=== PATIENT | male | born 1995 | race Caucasian/White ===

== ENCOUNTER 2020-06-12 11:43 | Inpatient (IN) | payer MEDICAID ==
[~2020-06-12] VITALS: Ht 162.6 cm; Wt 50.0 kg
[2020-06-12] MEDS ORDERED: HALOPERIDOL LACTATE 5 MG/ML VIAL IM ONE (14:45)
[2020-06-12] MEDS ORDERED: DiphenhydrAMINE HCL 50 MG/ML VIAL IM ONE (14:45)
[2020-06-12] MEDS ORDERED: LORazepam 2 MG/ML VIAL IM ONE (14:45)
[2020-06-12 16:30] LABS: COVID AG,FIA SOURCE NASOPHARYNGEAL
[2020-06-12 16:55] LABS: BASOPHILS % (AUTO) 0.4 % (0.0-2.0); EOSINOPHILS % (AUTO) 0 % (1.0-6.0); HEMATOCRIT 48.6 % (41-53); HEMOGLOBIN 16.7 g/dL (13.5-17.5); LYMPHOCYTES # (AUTO) 1.3 K/uL (1.0-4.8); LYMPHOCYTES % (AUTO) 12.3 % (22.0-44.0); MEAN CORPUSCULAR HEMOGLOBIN 30.9 pg (26.0-34.0); MEAN CORPUSCULAR HGB CONC 34.3 G/dL (31.0-37.0); MEAN CORPUSCULAR VOLUME 90 fL (80-100); MONOCYTES # (AUTO) 0.8 K/uL (0.1-1.0); MONOCYTES % (AUTO) 7.7 % (2.0-9.0); NEUTROPHILS # (AUTO) 8.1 K/uL (1.8-7.7); NEUTROPHILS % (AUTO) 79.6 % (40.0-70.0); PLATELET COUNT (AUTO) 180 K/uL (150-450); RED CELL DISTRIBUTION WIDTH 13.3 % (11.5-14.5)
[2020-06-12 17:06] LABS: ANION GAP 17 mmol/L (8-16); CALCIUM, TOTAL 9.5 mg/dL (8.8-10.5); CARBON DIOXIDE 23 mmol/L (22-29); CHLORIDE 100 mmol/L (98-107); CREATININE 0.89 mg/dL (0.60-1.30); GLOMERULAR FILTR. RATE CALC > 60 mL/min (>60); GLUCOSE,RANDOM 88 mg/dL (70-110); POTASSIUM 3.7 mmol/L (3.5-5.1); SODIUM SERUM 140 mmol/L (136-145); UREA NITROGEN, BLOOD 15 mg/dL (7-18)
[2020-06-12 17:11] LABS: ALANINE AMINOTRANSFERASE 18 U/L (12-78); ALBUMIN 5.2 g/dL (3.4-5.0); ALKALINE PHOSPHATASE 68 U/L (46-116); ASPARTATE AMINOTRANSFERASE 22 U/L (15-37); BILIRUBIN,TOTAL 1.7 mg/dL (0.1-1.0); TOTAL PROTEIN, SERUM 8.3 g/dL (6.4-8.2)
[2020-06-12 17:21] LABS: FREE T4 (FREE THYROXINE) 1.3 ng/dL (0.76-1.46); THYROID STIMULATING HORMONE 2.27 uIU/mL (0.36-3.74)
[2020-06-12 21:00] VITALS: BP 114/70
[2020-06-12] MEDS ORDERED: ZOLPIDEM TARTRATE 10 MG TABLET PO PRN (21:15)
[2020-06-12] MEDS ORDERED: INFLUENZA VIRUS VACCINE QVS 2020-21 (6MO+)/PF 60 MCG/0.5 ML SYRINGE IM ONE (21:30)
[2020-06-13] MEDS ORDERED: IBUPROFEN 400 MG TABLET PO PRN (07:00)
[2020-06-13] MEDS ORDERED: CloNIDine HCL 0.1 MG TABLET PO PRN (07:00)
[2020-06-13] MEDS ORDERED: PETROLATUM,WHITE 28 GM JELLY TP PRN (07:00)
[2020-06-13] MEDS ORDERED: DOCUSATE SODIUM 100 MG CAPSULE PO PRN (07:00)
[2020-06-13] MEDS ORDERED: MAG HYDROX/AL HYDROX/SIMETH ES 30 ML SUSPENSION UDCUP PO PRN (07:00)
[2020-06-13] MEDS ORDERED: MAGNESIUM HYDROXIDE SUSPENSION 30 ML UDCUP PO PRN (07:00)
[2020-06-13] MEDS ORDERED: ALBUTEROL SULFATE HFA 90 MCG/PUFF 8 GM INHALER IH PRN (07:00)
[2020-06-13] MEDS ORDERED: ACETAMINOPHEN 325 MG TABLET PO PRN (07:00)
[2020-06-13] MEDS ORDERED: GuaiFENesin/D-METHORPHAN [SUGAR-FREE] 200-20MG/10 ML SYRUP UDCUP PO PRN (07:00)
[2020-06-13] MEDS ORDERED: NICOTINE 14 MG/24 HOUR PATCH TD PRN (07:00)
[2020-06-13] MEDS ORDERED: ONDANSETRON HCL 4 MG TABLET PO PRN (07:00)
[2020-06-13] MEDS ORDERED: LOPERAMIDE HCL 2 MG CAPSULE PO PRN (07:00)
[2020-06-13 08:31] LABS: CHOL/HDL RATIO 3.2 (4.2-7.3)
[2020-06-13] MEDS: LORazepam 2 MG TABLET PO PRN ×2 (08:33→20:20)
[2020-06-13] MEDS: HALOPERIDOL 5 MG TABLET PO PRN ×2 (08:33→20:19)
[2020-06-13 08:46] VITALS: BP 124/74
[2020-06-13] MEDS: ARIPiprazole 5 MG TABLET PO SCH (15:01)
[2020-06-13 17:25] VITALS: BP 101/69
[2020-06-14 03:48] VITALS: BP 108/73
[2020-06-14] MEDS: HALOPERIDOL 5 MG TABLET PO PRN (08:44)
[2020-06-14] MEDS: LORazepam 2 MG TABLET PO PRN (08:44)
[2020-06-14] MEDS: ARIPiprazole 5 MG TABLET PO SCH (08:44)
[2020-06-14 09:25] VITALS: BP 117/80
[2020-06-14 17:19] VITALS: BP 118/80
[2020-06-15 05:19] VITALS: BP 114/79
[2020-06-15 08:30] VITALS: BP 112/78
[2020-06-15] MEDS: ARIPiprazole 5 MG TABLET PO SCH (09:45)
[2020-06-15 16:47] VITALS: BP 105/70
[2020-06-16 02:55] VITALS: BP 125/80
[2020-06-16] MEDS ORDERED: ARIP5TAB8 PO (08:13)
[2020-06-16] MEDS: ARIPiprazole 5 MG TABLET PO SCH (08:20)
[2020-06-16 08:28] VITALS: BP 116/78
== END 2020-06-16 14:47 | disposition home or self-care (01) | DRG 750 ==
LOC: EMS 11:43 → B3A 19:00
DX: F20.0 Paranoid schizophrenia (principal); E80.6 Other disorders of bilirubin metabolism; F32.9 Major depressive disorder, single episode, unspecified; F29 Unspecified psychosis not due to a substance or known physiological condition; R00.0 Tachycardia, unspecified; Z20.822 Contact with and (suspected) exposure to COVID-19; R10.13 Epigastric pain; Z79.899 Other long term (current) drug therapy; Z28.21 Immunization not carried out because of patient refusal
CPT/HCPCS: 84439; 84443; 87426; 99285; G0480; J1200; J1630; J2060

== ENCOUNTER 2020-06-19 15:14 | Inpatient (IN) | payer MEDICAID ==
[~2020-06-19] VITALS: Ht 170.2 cm; Wt 45.8 kg
[~2020-06-19 15:14] MED LIST: ARIP5TAB8 PO
[2020-06-19] MEDS ORDERED: HALOPERIDOL 5 MG TABLET PO PRN (15:30)
[2020-06-19] MEDS ORDERED: ZOLPIDEM TARTRATE 10 MG TABLET PO PRN (15:30)
[2020-06-19] MEDS ORDERED: LORazepam 1 MG TABLET PO PRN (15:30)
[2020-06-19 16:52] VITALS: BP 127/78
[2020-06-19 19:22] LABS: COVID AG,FIA SOURCE NASAL SWAB
[2020-06-19 20:10] VITALS: BP 131/94
[2020-06-19] MEDS ORDERED: INFLUENZA VIRUS VACCINE QVS 2020-21 (6MO+)/PF 60 MCG/0.5 ML SYRINGE IM ONE (20:30)
[2020-06-20] MEDS ORDERED: NICOTINE 14 MG/24 HOUR PATCH TD PRN (07:30)
[2020-06-20] MEDS ORDERED: CloNIDine HCL 0.1 MG TABLET PO PRN (07:30)
[2020-06-20] MEDS ORDERED: LOPERAMIDE HCL 2 MG CAPSULE PO PRN (07:30)
[2020-06-20] MEDS ORDERED: DOCUSATE SODIUM 100 MG CAPSULE PO PRN (07:30)
[2020-06-20] MEDS ORDERED: MAGNESIUM HYDROXIDE SUSPENSION 30 ML UDCUP PO PRN (07:30)
[2020-06-20] MEDS ORDERED: GuaiFENesin/D-METHORPHAN [SUGAR-FREE] 200-20MG/10 ML SYRUP UDCUP PO PRN (07:30)
[2020-06-20] MEDS ORDERED: ONDANSETRON HCL 4 MG TABLET PO PRN (07:30)
[2020-06-20] MEDS ORDERED: MAG HYDROX/AL HYDROX/SIMETH ES 30 ML SUSPENSION UDCUP PO PRN (07:30)
[2020-06-20] MEDS ORDERED: IBUPROFEN 400 MG TABLET PO PRN (07:30)
[2020-06-20] MEDS ORDERED: ALBUTEROL SULFATE HFA 90 MCG/PUFF 8 GM INHALER IH PRN (07:30)
[2020-06-20] MEDS ORDERED: ACETAMINOPHEN 325 MG TABLET PO PRN (07:30)
[2020-06-20] MEDS ORDERED: PETROLATUM,WHITE 28 GM JELLY TP PRN (07:30)
[2020-06-20 07:36] LABS: EOSINOPHILS % (AUTO) 0.4 % (1.0-6.0); LYMPHOCYTES % (AUTO) 30.1 % (22.0-44.0); MEAN CORPUSCULAR HEMOGLOBIN 31.1 pg (26.0-34.0); MEAN CORPUSCULAR HGB CONC 34.1 G/dL (31.0-37.0); MEAN CORPUSCULAR VOLUME 91 fL (80-100); MONOCYTES # (AUTO) 0.2 K/uL (0.1-1.0); MONOCYTES % (AUTO) 7.9 % (2.0-9.0); NEUTROPHILS # (AUTO) 1.9 K/uL (1.8-7.7); NEUTROPHILS % (AUTO) 60.6 % (40.0-70.0); PLATELET COUNT (AUTO) 182 K/uL (150-450); RED BLOOD CELL COUNT(AUTO) 5.16 MIL/uL (4.50-5.90); RED CELL DISTRIBUTION WIDTH 13.4 % (11.5-14.5)
[2020-06-20 07:51] LABS: HEMOGLOBIN A1C 4.9 % (3.8-5.6)
[2020-06-20 08:08] LABS: ALANINE AMINOTRANSFERASE 23 U/L (12-78); ALBUMIN 4.4 g/dL (3.4-5.0); ALKALINE PHOSPHATASE 59 U/L (46-116); ANION GAP 9 mmol/L (8-16); ASPARTATE AMINOTRANSFERASE 14 U/L (15-37); BILIRUBIN,TOTAL 0.9 mg/dL (0.1-1.0); CALCIUM, TOTAL 9.2 mg/dL (8.8-10.5); CARBON DIOXIDE 30 mmol/L (22-29); CHLORIDE 104 mmol/L (98-107); CHOL/HDL RATIO 2.9 (4.2-7.3); CHOLESTEROL 130 mg/dL (131-200); CREATININE 0.75 mg/dL (0.60-1.30); GLOMERULAR FILTR. RATE CALC > 60 mL/min (>60); GLUCOSE,RANDOM 91 mg/dL (70-110); HDL CHOLESTEROL 45 mg/dL (40-60); LDL CHOL (CALC.) 75 mg/dL (0-130); POTASSIUM 3.6 mmol/L (3.5-5.1); SODIUM SERUM 143 mmol/L (136-145); TOTAL PROTEIN, SERUM 7.2 g/dL (6.4-8.2); TRIGLYCERIDES 52 mg/dL (15-150); UREA NITROGEN, BLOOD 7 mg/dL (7-18)
[2020-06-20 08:17] VITALS: BP 116/94
[2020-06-20 08:23] LABS: FREE T4 (FREE THYROXINE) 1.15 ng/dL (0.76-1.46); THYROID STIMULATING HORMONE 1.36 uIU/mL (0.36-3.74)
[2020-06-20 16:11] VITALS: BP 112/68
[2020-06-21 00:15] VITALS: BP 132/57
[2020-06-21 08:14] VITALS: BP 112/70
[2020-06-21] MEDS: ARIPiprazole 10 MG TABLET PO SCH (09:45)
[2020-06-21 16:20] VITALS: BP 115/84
[2020-06-22 00:51] VITALS: BP 103/70
[2020-06-22 07:40] LABS: APPEARANCE,URINE CLEAR (CLEAR); GLUCOSE, URINE (UA) NEGATIVE (NEGATIVE); KETONES,URINE TRACE mg/dL (NEGATIVE); LEUKOCYTE ESTERASE ,URINE NEGATIVE (NEGATIVE); NITRATE,URINE NEGATIVE (NEGATIVE); OCCULT BLOOD,URINE NEGATIVE (NEGATIVE); PROTEIN,URINE NEGATIVE (NEGATIVE)
[2020-06-22 07:46] LABS: AMPHET/METH SCREEN,URINE NEGATIVE (NEGATIVE); BARBITURATE SCREEN, URINE NEGATIVE (NEGATIVE); BENZODIAZEPINES SCREEN,URINE NEGATIVE (NEGATIVE); BILIRUBIN,URINE PRELIM. POSITIVE (NEGATIVE); CANNABINOID SCREEN,URINE NEGATIVE (NEGATIVE); COCAINE SCREEN,URINE NEGATIVE (NEGATIVE); METHADONE SCREEN, URINE NEGATIVE (NEGATIVE); OPIATE SCREEN,URINE NEGATIVE (NEGATIVE)
[2020-06-22 07:48] LABS: PHENCYCLIDINE SCREEN,URINE NEGATIVE (NEGATIVE)
[2020-06-22] MEDS: ARIPiprazole 10 MG TABLET PO SCH (08:16)
[2020-06-22 08:29] VITALS: BP 107/75
[2020-06-22] MEDS ORDERED: ARIPiprazole LAUROXIL,SUBMICR. ER SUSPENSION 675 MG/2.4 ML SYRINGE IM ONE (13:00)
[2020-06-22] MEDS ORDERED: ARIPiprazole LAUROXIL ER SUSPENSION 1064 MG/3.9 ML SYRINGE IM SCH (13:00)
[2020-06-22 16:10] VITALS: BP 102/62
[2020-06-23 05:27] VITALS: BP 114/75
[2020-06-23 08:16] VITALS: BP 122/78
[2020-06-23] MEDS: ARIPiprazole 10 MG TABLET PO SCH (09:09)
[2020-06-23 19:51] VITALS: BP 110/68
[2020-06-24 05:50] VITALS: BP 112/68
[2020-06-24 07:41] LABS: COVID AG,FIA SOURCE NASOPHARYNGEAL
[2020-06-24 08:18] VITALS: BP 121/62
[2020-06-24] MEDS: ARIPiprazole 10 MG TABLET PO SCH (08:58)
[2020-06-24 16:12] VITALS: BP 110/70
[2020-06-25 04:37] VITALS: BP 119/76
[2020-06-25] MEDS ORDERED: ARIP1064 IM (08:19)
[2020-06-25 08:23] VITALS: BP 112/62
[2020-06-25 16:16] VITALS: BP 115/64
== END 2020-06-25 17:30 | disposition home or self-care (01) | DRG 750 ==
LOC: B2S 17:07
PROVIDERS: ADMIT Psychiatry & Neurology Child & Adolescent Psychiatry
DX: F20.0 Paranoid schizophrenia (principal); R45.851 Suicidal ideations; Z20.822 Contact with and (suspected) exposure to COVID-19; D72.819 Decreased white blood cell count, unspecified; E43 Unspecified severe protein-calorie malnutrition; R00.0 Tachycardia, unspecified; Z68.1 Body mass index [BMI] 19.9 or less, adult
CPT/HCPCS: 80307; 83036; 84439; 84443; 87081; 87426; A9575

== ENCOUNTER 2021-02-08 23:37 | Inpatient (IN) | payer MEDICAID ==
[~2021-02-08] VITALS: Ht 170.2 cm; Wt 49.2 kg
[~2021-02-08 23:37] MED LIST changes: +ARIP1064 IM; -ARIP5TAB8 PO
[2021-02-09 03:28] VITALS: BP 120/70
[2021-02-09] MEDS ORDERED: INFLUENZA VIRUS VACCINE QVS 2021-22 (6MO+)/PF 60 MCG/0.5 ML SYRINGE IM. ONE (03:45)
[2021-02-09 03:47] VITALS: BP 111/86
[2021-02-09 08:20] VITALS: BP 108/66
[2021-02-09] MEDS: LORazepam 2 MG TABLET PO PRN ×2 (08:48→16:20)
[2021-02-09] MEDS ORDERED: ALBUTEROL SULFATE HFA 90 MCG/PUFF 8 GM INHALER IH PRN (09:30)
[2021-02-09] MEDS ORDERED: DOCUSATE SODIUM 100 MG CAPSULE PO PRN (09:30)
[2021-02-09] MEDS ORDERED: MAG HYDROX/AL HYDROX/SIMETH ES 30 ML SUSPENSION UDCUP PO PRN (09:30)
[2021-02-09] MEDS ORDERED: IBUPROFEN 400 MG TABLET PO PRN (09:30)
[2021-02-09] MEDS ORDERED: MAGNESIUM HYDROXIDE SUSPENSION 30 ML UDCUP PO PRN (09:30)
[2021-02-09] MEDS ORDERED: LOPERAMIDE HCL 2 MG CAPSULE PO PRN (09:30)
[2021-02-09] MEDS ORDERED: ONDANSETRON HCL 4 MG TABLET PO PRN (09:30)
[2021-02-09] MEDS ORDERED: NICOTINE 14 MG/24 HOUR PATCH TD PRN (09:30)
[2021-02-09] MEDS ORDERED: ACETAMINOPHEN 325 MG TABLET PO PRN (09:30)
[2021-02-09] MEDS ORDERED: CloNIDine HCL 0.1 MG TABLET PO PRN (09:30)
[2021-02-09] MEDS ORDERED: GuaiFENesin/D-METHORPHAN [SUGAR-FREE] 200-20MG/10 ML SYRUP UDCUP PO PRN (09:30)
[2021-02-09] MEDS ORDERED: PETROLATUM,WHITE 28 GM JELLY TP PRN (09:30)
[2021-02-09] MEDS: ARIPiprazole 10 MG TABLET PO SCH (10:06)
[2021-02-09] MEDS: QUEtiapine FUMARATE 100 MG TABLET PO PRN (16:20)
[2021-02-09 16:30] VITALS: BP 110/67
[2021-02-10 06:29] VITALS: BP 106/70
[2021-02-10 08:22] VITALS: BP 102/58
[2021-02-10] MEDS: LORazepam 2 MG TABLET PO PRN ×2 (08:43→16:43)
[2021-02-10] MEDS: ARIPiprazole 10 MG TABLET PO SCH (08:43)
[2021-02-10] MEDS: QUEtiapine FUMARATE 100 MG TABLET PO PRN (08:43)
[2021-02-10 10:44] VITALS: BP 111/68
[2021-02-10 18:38] VITALS: BP 115/77
[2021-02-10] MEDS: ZOLPIDEM TARTRATE 10 MG TABLET PO PRN (20:45)
[2021-02-11 05:00] VITALS: BP 117/78
[2021-02-11] MEDS: LORazepam 2 MG TABLET PO PRN ×2 (05:48→10:15)
[2021-02-11] MEDS: ARIPiprazole 10 MG TABLET PO SCH (07:54)
[2021-02-11 08:38] VITALS: BP 130/84
[2021-02-11 16:11] VITALS: BP 122/82
[2021-02-11 16:35] VITALS: BP 128/90
[2021-02-11] MEDS: ZOLPIDEM TARTRATE 10 MG TABLET PO PRN (20:48)
[2021-02-12 00:55] VITALS: BP 130/84
[2021-02-12] MEDS: LORazepam 2 MG TABLET PO PRN (06:00)
[2021-02-12 08:11] LABS: BASOPHILS % (AUTO) 0.5 % (0.0-2.0); EOSINOPHILS % (AUTO) 0.4 % (1.0-6.0); HEMATOCRIT 48.3 % (41-53); HEMOGLOBIN 16.7 g/dL (13.5-17.5); LYMPHOCYTES # (AUTO) 1.4 K/uL (1.0-4.8); LYMPHOCYTES % (AUTO) 31.8 % (22.0-44.0); MEAN CORPUSCULAR HEMOGLOBIN 31.3 pg (26.0-34.0); MEAN CORPUSCULAR HGB CONC 34.6 G/dL (31.0-37.0); MEAN CORPUSCULAR VOLUME 91 fL (80-100); MONOCYTES # (AUTO) 0.3 K/uL (0.1-1.0); MONOCYTES % (AUTO) 7.8 % (2.0-9.0); NEUTROPHILS # (AUTO) 2.6 K/uL (1.8-7.7); NEUTROPHILS % (AUTO) 59.5 % (40.0-70.0); PLATELET COUNT (AUTO) 180 K/uL (150-450); RED BLOOD CELL COUNT(AUTO) 5.34 MIL/uL (4.50-5.90); RED CELL DISTRIBUTION WIDTH 13.6 % (11.5-14.5)
[2021-02-12 08:33] VITALS: BP 120/78
[2021-02-12 08:38] LABS: MAGNESIUM 2.2 mg/dL (1.80-2.40); PHOSPHORUS 3.8 mg/dL (2.5-4.9); POTASSIUM 3.5 mmol/L (3.5-5.1)
[2021-02-12] MEDS: ARIPiprazole 10 MG TABLET PO SCH (08:46)
[2021-02-12 08:50] LABS: ALANINE AMINOTRANSFERASE 22 U/L (12-78); ALBUMIN 4.8 g/dL (3.4-5.0); ALKALINE PHOSPHATASE 63 U/L (46-116); ANION GAP 7 mmol/L (8-16); ASPARTATE AMINOTRANSFERASE 11 U/L (15-37); CALCIUM, TOTAL 9.5 mg/dL (8.8-10.5); CARBON DIOXIDE 30 mmol/L (22-29); CHLORIDE 103 mmol/L (98-107); CHOLESTEROL 149 mg/dL (131-200); CREATININE 0.78 mg/dL (0.60-1.30); FREE T4 (FREE THYROXINE) 1.47 ng/dL (0.76-1.46); GLOMERULAR FILTR. RATE CALC > 60 mL/min (>60); GLUCOSE,RANDOM 87 mg/dL (70-110); HDL CHOLESTEROL 50 mg/dL (40-60); LDL CHOL (CALC.) 90 mg/dL (0-130); POTASSIUM 3.5 mmol/L (3.5-5.1); SODIUM SERUM 140 mmol/L (136-145); TOTAL PROTEIN, SERUM 7.8 g/dL (6.4-8.2); TRIGLYCERIDES 44 mg/dL (15-150); UREA NITROGEN, BLOOD 9 mg/dL (7-18)
[2021-02-12] MEDS ORDERED: MULTIVITAMINS WITH MINERALS, THERAPEUTIC TABLET PO SCH (09:00)
[2021-02-12 09:19] LABS: GLUCOMETER DEV NAME(LOC) POC.BV
[2021-02-12] MEDS ORDERED: ARIP10TA38 PO (14:30)
== END 2021-02-12 15:05 | disposition home or self-care (01) | DRG 750 ==
LOC: B3A 02-09 02:39
PROVIDERS: ADMIT Psychiatry & Neurology Child & Adolescent Psychiatry; ATTEND Psychiatry & Neurology Child & Adolescent Psychiatry
DX: F25.1 Schizoaffective disorder, depressive type (principal); E43 Unspecified severe protein-calorie malnutrition; R45.851 Suicidal ideations; F41.9 Anxiety disorder, unspecified; Z20.822 Contact with and (suspected) exposure to COVID-19; Z91.14 Patient's other noncompliance with medication regimen; Z68.1 Body mass index [BMI] 19.9 or less, adult; Z79.899 Other long term (current) drug therapy
CPT/HCPCS: 80053; 80061; 83036; 83735; 84100; 84132; 84439; 84443; 85025

== ENCOUNTER 2023-03-20 20:59 | Emergency (ER) | payer MEDICAID ==
[~2023-03-20] VITALS: Ht 172.7 cm; Wt 52.3 kg
[~2023-03-20 20:59] MED LIST changes: -ARIP1064 IM; +ARIP10TA38 PO
[2023-03-20 21:04] VITALS: BP 138/79; PULSE 85; RESP 12; TEMP 98.5
[2023-03-20 21:41] LABS: EOSINOPHILS % (AUTO) 2.1 % (1.0-6.0); HEMATOCRIT 47.4 % (41-53); HEMOGLOBIN 16.4 g/dL (13.5-17.5); LYMPHOCYTES # (AUTO) 2.2 K/uL (1.0-4.8); LYMPHOCYTES % (AUTO) 36.3 % (22.0-44.0); MEAN CORPUSCULAR HEMOGLOBIN 32.9 pg (26.0-34.0); MEAN CORPUSCULAR HGB CONC 34.7 G/dL (31.0-37.0); MEAN CORPUSCULAR VOLUME 95 fL (80-100); MONOCYTES # (AUTO) 0.4 K/uL (0.1-1.0); MONOCYTES % (AUTO) 6.3 % (2.0-9.0); NEUTROPHILS # (AUTO) 3.3 K/uL (1.8-7.7); NEUTROPHILS % (AUTO) 54.3 % (40.0-70.0); PLATELET COUNT (AUTO) 218 K/uL (150-450); RED CELL DISTRIBUTION WIDTH 13.2 % (11.5-14.5); WHITE BLOOD COUNT (AUTO) 6.1 K/uL (4.5-11.0)
[2023-03-20 21:47] LABS: ANION GAP 8 mmol/L (8-16); CALCIUM, TOTAL 9.1 mg/dL (8.8-10.5); CARBON DIOXIDE 25 mmol/L (22-29); CHLORIDE 103 mmol/L (98-107); CREATININE 0.75 mg/dL (0.60-1.30); GLOMERULAR FILTR. RATE CALC > 60 mL/min (>60); GLUCOSE,RANDOM 106 mg/dL (70-110); POTASSIUM 3.8 mmol/L (3.5-5.1); SODIUM SERUM 136 mmol/L (136-145); UREA NITROGEN, BLOOD 11 mg/dL (7-18)
[2023-03-20 21:53] LABS: ALANINE AMINOTRANSFERASE 19 U/L (12-78); ALBUMIN 4.5 g/dL (3.4-5.0); ALKALINE PHOSPHATASE 89 U/L (46-116); ASPARTATE AMINOTRANSFERASE 14 U/L (15-37); BILIRUBIN,TOTAL 0.4 mg/dL (0.1-1.0); TOTAL PROTEIN, SERUM 7.8 g/dL (6.4-8.2)
[2023-03-20 22:01] LABS: ALCOHOL, BLOOD (SERUM) < 3 mg/dL (0-10)
[2023-03-20 23:25] LABS: COVID AG,FIA SOURCE NASAL SWAB
[2023-03-20] MEDS ORDERED: ARIPiprazole 10 MG TABLET PO ONE (23:45)
[2023-03-20 23:49] LABS: SARS-COV2 (COVID) ANTIGEN,FIA Negative (Negative)
== END 2023-03-21 00:38 ==
LOC: EMS 21:00
DX: F20.0 Paranoid schizophrenia (principal); Z20.822 Contact with and (suspected) exposure to COVID-19
CPT/HCPCS: 99283; 87426; 80053; 85025; 36415; G0480

== ENCOUNTER 2023-03-21 04:32 | Inpatient (IN) | payer MEDICAID ==
[~2023-03-21] VITALS: Ht 170.2 cm; Wt 48.0 kg
[2023-03-21] MEDS ORDERED: ZOLPIDEM TARTRATE 10 MG TABLET PO PRN (05:00)
[2023-03-21 06:06] VITALS: BP 107/69; PULSE 102; RESP 17; TEMP 97.3; O2SAT 98
[2023-03-21 06:32] VITALS: BP 107/69; PULSE 102; RESP 17; TEMP 97.3
[2023-03-21 06:40] VITALS: BP 107/69; PULSE 98; RESP 17; TEMP 97.8
[2023-03-21] MEDS ORDERED: INFLUENZA VIRUS VACCINE QVS 2023-24 (6MO+)/PF 60 MCG/0.5 ML SYRINGE IM. ONE (07:00)
[2023-03-21] MEDS: ARIPiprazole 10 MG TABLET PO SCH (12:39)
[2023-03-21 14:18] VITALS: BP 119/67; PULSE 72; RESP 18; TEMP 97.8; O2SAT 98
[2023-03-21 20:27] VITALS: BP 109/68; PULSE 100; RESP 16; TEMP 97.5; O2SAT 98
[2023-03-22] MEDS: HALOPERIDOL 5 MG TABLET PO PRN (06:11)
[2023-03-22] MEDS: LORazepam 2 MG TABLET PO PRN (06:11)
[2023-03-22 08:03] LABS: BASOPHILS % (AUTO) 1.2 % (0.0-2.0); EOSINOPHILS % (AUTO) 1.7 % (1.0-6.0); HEMATOCRIT 44.9 % (41-53); HEMOGLOBIN 15.4 g/dL (13.5-17.5); LYMPHOCYTES # (AUTO) 1.2 K/uL (1.0-4.8); LYMPHOCYTES % (AUTO) 35.5 % (22.0-44.0); MEAN CORPUSCULAR HEMOGLOBIN 32.5 pg (26.0-34.0); MEAN CORPUSCULAR HGB CONC 34.2 G/dL (31.0-37.0); MEAN CORPUSCULAR VOLUME 95 fL (80-100); MONOCYTES # (AUTO) 0.2 K/uL (0.1-1.0); MONOCYTES % (AUTO) 7.2 % (2.0-9.0); NEUTROPHILS # (AUTO) 1.8 K/uL (1.8-7.7); NEUTROPHILS % (AUTO) 54.4 % (40.0-70.0); PLATELET COUNT (AUTO) 167 K/uL (150-450); RED BLOOD CELL COUNT(AUTO) 4.73 MIL/uL (4.50-5.90); WHITE BLOOD COUNT (AUTO) 3.3 K/uL (4.5-11.0)
[2023-03-22 08:26] LABS: ALANINE AMINOTRANSFERASE 21 U/L (12-78); ALBUMIN 4.1 g/dL (3.4-5.0); ALKALINE PHOSPHATASE 69 U/L (46-116); ANION GAP 5 mmol/L (8-16); ASPARTATE AMINOTRANSFERASE 13 U/L (15-37); BILIRUBIN,TOTAL 0.3 mg/dL (0.1-1.0); CARBON DIOXIDE 29 mmol/L (22-29); CHLORIDE 104 mmol/L (98-107); CHOL/HDL RATIO 3.1 (4.2-7.3); CHOLESTEROL 156 mg/dL (131-200); CREATININE 0.69 mg/dL (0.60-1.30); FREE T4 (FREE THYROXINE) 1.04 ng/dL (0.76-1.46); GLOMERULAR FILTR. RATE CALC > 60 mL/min (>60); GLUCOSE,RANDOM 71 mg/dL (70-110); HDL CHOLESTEROL 50 mg/dL (40-60); LDL CHOL (CALC.) 90 mg/dL (0-130); POTASSIUM 3.8 mmol/L (3.5-5.1); SODIUM SERUM 138 mmol/L (136-145); THYROID STIMULATING HORMONE 0.88 uIU/mL (0.36-3.74); TRIGLYCERIDES 78 mg/dL (15-150); UREA NITROGEN, BLOOD 8 mg/dL (7-18)
[2023-03-22 08:27] VITALS: BP 119/76; PULSE 85; RESP 17; TEMP 97.9; O2SAT 99
[2023-03-22] MEDS: ARIPiprazole 10 MG TABLET PO SCH (08:35)
[2023-03-22] MEDS: MULTIVITAMINS WITH MINERALS, THERAPEUTIC TABLET PO SCH (08:52)
[2023-03-22 20:10] VITALS: BP 114/69; PULSE 100; RESP 16; TEMP 97.8; O2SAT 99
[2023-03-23] MEDS: LORazepam 2 MG TABLET PO PRN ×3 (02:57→16:29)
[2023-03-23] MEDS: HALOPERIDOL 5 MG TABLET PO PRN ×3 (02:57→16:29)
[2023-03-23] MEDS: ARIPiprazole 10 MG TABLET PO SCH (08:20)
[2023-03-23 08:33] VITALS: BP 121/71; PULSE 97; RESP 16; TEMP 97.9; O2SAT 100
[2023-03-23] MEDS: MULTIVITAMINS WITH MINERALS, THERAPEUTIC TABLET PO SCH (09:00)
[2023-03-23 20:07] VITALS: BP 107/72; PULSE 100; RESP 18; TEMP 97.5; O2SAT 96
[2023-03-24] MEDS: HALOPERIDOL 5 MG TABLET PO PRN ×3 (06:07→23:02)
[2023-03-24] MEDS: LORazepam 2 MG TABLET PO PRN ×2 (06:07→23:02)
[2023-03-24 09:13] VITALS: BP 123/79; PULSE 106; RESP 19; TEMP 98.1; O2SAT 99
[2023-03-24] MEDS: ARIPiprazole 10 MG TABLET PO SCH (09:20)
[2023-03-24] MEDS: MULTIVITAMINS WITH MINERALS, THERAPEUTIC TABLET PO SCH (09:20)
[2023-03-24 21:09] VITALS: BP 110/81; PULSE 106; RESP 17; TEMP 98.2; O2SAT 97
[2023-03-24 22:51] LABS: GLUCOMETER DEV NAME(LOC) POC.BV; POC SARS-COV2 AG, FIA NEGATIVE (NEGATIVE)
[2023-03-25] MEDS ORDERED: ARIP10TA38 PO (07:05)
[2023-03-25 08:12] VITALS: BP 109/79; PULSE 99; RESP 17; TEMP 98.4; O2SAT 97
[2023-03-25] MEDS: ARIPiprazole 10 MG TABLET PO SCH (09:03)
[2023-03-25] MEDS: MULTIVITAMINS WITH MINERALS, THERAPEUTIC TABLET PO SCH (09:03)
== END 2023-03-25 13:25 | disposition home or self-care (01) | DRG 750 ==
LOC: B2S 05:01
PROVIDERS: ADMIT Psychiatry & Neurology Psychiatry; ATTEND Psychiatry & Neurology Psychiatry
PROC: GZHZZZZ Group Psychotherapy (ICD-10-PCS; principal; 2023-03-21)
DX: F20.0 Paranoid schizophrenia (principal); E44.0 Moderate protein-calorie malnutrition; R45.851 Suicidal ideations; G47.00 Insomnia, unspecified; F41.9 Anxiety disorder, unspecified; F12.90 Cannabis use, unspecified, uncomplicated; Z79.899 Other long term (current) drug therapy; Z81.8 Family history of other mental and behavioral disorders; Z68.1 Body mass index [BMI] 19.9 or less, adult; Z20.822 Contact with and (suspected) exposure to COVID-19
CPT/HCPCS: 80053; 80061; 83036; 84439; 84443; 85025

== ENCOUNTER 2023-03-26 20:45 | Emergency (ER) | payer MEDICAID ==
[~2023-03-26] VITALS: Ht 172.7 cm; Wt 50.0 kg
[2023-03-26 21:28] VITALS: BP 111/81; PULSE 89; RESP 16; TEMP 98.7
== END 2023-03-26 21:33 | disposition left against medical advice (07) ==
LOC: EMS 20:46
DX: R44.0 Auditory hallucinations (principal); Z53.21 Procedure and treatment not carried out due to patient leaving prior to being seen by health care provider
CPT/HCPCS: 99281; Z7502

== ENCOUNTER 2023-04-15 20:25 | Emergency (ER) | payer MEDICAID | END 2023-04-15 20:55 | disposition left against medical advice (07) | LOC: EMS 20:29 | DX: Z53.21 Procedure and treatment not carried out due to patient leaving prior to being seen by health care provider (principal) ==

== ENCOUNTER 2023-04-16 03:50 | Inpatient (IN) | payer MEDICAID ==
[~2023-04-16] VITALS: Ht 170.2 cm; Wt 51.8 kg
[2023-04-16 04:33] LABS: BASOPHILS % (AUTO) 1.2 % (0.0-2.0); EOSINOPHILS % (AUTO) 0.2 % (1.0-6.0); HEMATOCRIT 43.4 % (41-53); HEMOGLOBIN 14.9 g/dL (13.5-17.5); LYMPHOCYTES # (AUTO) 1.3 K/uL (1.0-4.8); LYMPHOCYTES % (AUTO) 18.3 % (22.0-44.0); MEAN CORPUSCULAR HEMOGLOBIN 32.5 pg (26.0-34.0); MEAN CORPUSCULAR HGB CONC 34.3 G/dL (31.0-37.0); MEAN CORPUSCULAR VOLUME 95 fL (80-100); MONOCYTES # (AUTO) 0.5 K/uL (0.1-1.0); MONOCYTES % (AUTO) 7.4 % (2.0-9.0); NEUTROPHILS # (AUTO) 5.4 K/uL (1.8-7.7); NEUTROPHILS % (AUTO) 72.9 % (40.0-70.0); PLATELET COUNT (AUTO) 208 K/uL (150-450); RED BLOOD CELL COUNT(AUTO) 4.59 MIL/uL (4.50-5.90); RED CELL DISTRIBUTION WIDTH 13.4 % (11.5-14.5); WHITE BLOOD COUNT (AUTO) 7.3 K/uL (4.5-11.0)
[2023-04-16 04:43] LABS: ANION GAP 12 mmol/L (8-16); CARBON DIOXIDE 25 mmol/L (22-29); CHLORIDE 101 mmol/L (98-107); CREATININE 0.73 mg/dL (0.60-1.30); GLOMERULAR FILTR. RATE CALC > 60 mL/min (>60); GLUCOSE,RANDOM 108 mg/dL (70-110); POTASSIUM 3.3 mmol/L (3.5-5.1); SODIUM SERUM 138 mmol/L (136-145); UREA NITROGEN, BLOOD 12 mg/dL (7-18)
[2023-04-16 04:52] LABS: ALANINE AMINOTRANSFERASE 24 U/L (12-78); ALBUMIN 4.4 g/dL (3.4-5.0); ALKALINE PHOSPHATASE 72 U/L (46-116); ASPARTATE AMINOTRANSFERASE 19 U/L (15-37); BILIRUBIN,TOTAL 0.8 mg/dL (0.1-1.0); TOTAL PROTEIN, SERUM 6.9 g/dL (6.4-8.2)
[2023-04-16 04:53] LABS: TROPONIN I-HIGH SENSITIVITY 8 ng/L (<76)
[2023-04-16] MEDS ORDERED: POTASSIUM CHLORIDE 20 MEQ ER TABLET PO ONE ×2 (05:00→05:15)
[2023-04-16 05:13] LABS: COVID AG,FIA SOURCE NASAL SWAB
[2023-04-16] MEDS ORDERED: SODIUM CHLORIDE 0.9% 1,000 ML IV ONE ×3 (05:15→15:00)
[2023-04-16 05:33] LABS: SARS-COV2 (COVID) ANTIGEN,FIA Negative (Negative)
[2023-04-16] MEDS ORDERED: ARIPiprazole 10 MG TABLET PO ONE (06:15)
[2023-04-16] MEDS ORDERED: POTASSIUM CHLORIDE 10% 40 MEQ/30 ML LIQUID UDCUP PO ONE (06:15)
[2023-04-16] MEDS ORDERED: ACETAMINOPHEN 325 MG TABLET PO PRN ×2 (08:15→15:00)
[2023-04-16] MEDS ORDERED: ONDANSETRON HCL 4 MG/2 ML VIAL IVP PRN ×2 (08:15→15:00)
[2023-04-16] MEDS ORDERED: 0.9% SODIUM CHLORIDE 10 ML SYRINGE IVP PRN (08:15)
[2023-04-16] MEDS ORDERED: ZOLPIDEM TARTRATE 5 MG TABLET PO PRN (15:00)
[2023-04-16] MEDS ORDERED: HYDROCODONE/ACETAMINOPHEN 5-325 MG TABLET PO PRN (15:00)
[2023-04-16] MEDS ORDERED: MORPHINE SULFATE 2 MG/ML SYRINGE IVP PRN (15:00)
[2023-04-16] MEDS ORDERED: BISACODYL 10 MG RECTAL RECTAL SUPPOSITORY PR PRN (15:00)
[2023-04-16] MEDS ORDERED: POTASSIUM CHL 10 MEQ/WATER 50 ML IV PRN (15:00)
[2023-04-16] MEDS ORDERED: POTASSIUM CHLORIDE 20 MEQ ER TABLET PO PRN (15:00)
[2023-04-16] MEDS ORDERED: MAGNESIUM HYDROXIDE SUSPENSION 30 ML UDCUP PO PRN (15:00)
[2023-04-16] MEDS: HEPARIN SODIUM,PORCINE 5,000 UNITS/ML VIAL SQ SCH (16:02)
[2023-04-16] MEDS ORDERED: ZOLPIDEM TARTRATE 10 MG TABLET PO PRN (17:15)
[2023-04-16] MEDS: DOCUSATE SODIUM 100 MG CAPSULE PO SCH (21:53)
[2023-04-16 23:16] VITALS: BP 121/74; PULSE 80; RESP 18; TEMP 97.9
[2023-04-17] MEDS: HEPARIN SODIUM,PORCINE 5,000 UNITS/ML VIAL SQ SCH
[2023-04-17] MEDS: LORazepam 2 MG TABLET PO PRN ×2 (00:55→21:11)
[2023-04-17] MEDS ORDERED: INFLUENZA VIRUS VACCINE QVS 2023-24 (6MO+)/PF 60 MCG/0.5 ML SYRINGE IM. ONE (03:00)
[2023-04-17 06:28] LABS: BASOPHILS % (AUTO) 0.9 % (0.0-2.0); EOSINOPHILS % (AUTO) 1.3 % (1.0-6.0); HEMATOCRIT 40.5 % (41-53); HEMOGLOBIN 13.8 g/dL (13.5-17.5); LYMPHOCYTES # (AUTO) 0.9 K/uL (1.0-4.8); LYMPHOCYTES % (AUTO) 32.2 % (22.0-44.0); MEAN CORPUSCULAR HEMOGLOBIN 32.5 pg (26.0-34.0); MEAN CORPUSCULAR HGB CONC 34.1 G/dL (31.0-37.0); MEAN CORPUSCULAR VOLUME 96 fL (80-100); MONOCYTES # (AUTO) 0.3 K/uL (0.1-1.0); MONOCYTES % (AUTO) 9.3 % (2.0-9.0); NEUTROPHILS # (AUTO) 1.6 K/uL (1.8-7.7); NEUTROPHILS % (AUTO) 56.3 % (40.0-70.0); PLATELET COUNT (AUTO) 147 K/uL (150-450); RED BLOOD CELL COUNT(AUTO) 4.24 MIL/uL (4.50-5.90); RED CELL DISTRIBUTION WIDTH 13.2 % (11.5-14.5); WHITE BLOOD COUNT (AUTO) 2.8 K/uL (4.5-11.0)
[2023-04-17 07:15] LABS: ALANINE AMINOTRANSFERASE 21 U/L (12-78); ALBUMIN 3.8 g/dL (3.4-5.0); ALKALINE PHOSPHATASE 60 U/L (46-116); ANION GAP 10 mmol/L (8-16); ASPARTATE AMINOTRANSFERASE 15 U/L (15-37); BILIRUBIN,TOTAL 0.4 mg/dL (0.1-1.0); CALCIUM, TOTAL 8.6 mg/dL (8.8-10.5); CARBON DIOXIDE 25 mmol/L (22-29); CHLORIDE 106 mmol/L (98-107); CREATININE 0.59 mg/dL (0.60-1.30); GLOMERULAR FILTR. RATE CALC > 60 mL/min (>60); GLUCOSE,RANDOM 95 mg/dL (70-110); SODIUM SERUM 141 mmol/L (136-145); TOTAL PROTEIN, SERUM 6.2 g/dL (6.4-8.2); UREA NITROGEN, BLOOD 5 mg/dL (7-18)
[2023-04-17] MEDS: PANTOPRAZOLE SODIUM 40 MG DR TABLET PO SCH (09:24)
[2023-04-17] MEDS: DOCUSATE SODIUM 100 MG CAPSULE PO SCH ×2 (09:24→16:22)
[2023-04-17] MEDS: ARIPiprazole 10 MG TABLET PO SCH (09:24)
[2023-04-17 10:41] LABS: APPEARANCE,URINE CLEAR (CLEAR); BILIRUBIN,URINE NEGATIVE (NEGATIVE); COLOR,URINE LIGHT YELLOW (YELLOW); GLUCOSE, URINE (UA) NEGATIVE (NEGATIVE); KETONES,URINE NEGATIVE (NEGATIVE); LEUKOCYTE ESTERASE ,URINE NEGATIVE (NEGATIVE); NITRATE,URINE NEGATIVE (NEGATIVE); OCCULT BLOOD,URINE NEGATIVE (NEGATIVE); PH,URINE 7.5 (5.0-8.0); PH,URINE DRUG SCREEN 7.5 (5.0-8.0); PROTEIN,URINE NEGATIVE (NEGATIVE); UROBILINOGEN,URINE <=1.0 mg/dL (<=1.0)
[2023-04-17 10:48] LABS: AMPHET/METH SCREEN,URINE NEGATIVE (NEGATIVE); BARBITURATE SCREEN, URINE NEGATIVE (NEGATIVE); BENZODIAZEPINES SCREEN,URINE NEGATIVE (NEGATIVE); CANNABINOID SCREEN,URINE NEGATIVE (NEGATIVE); COCAINE SCREEN,URINE NEGATIVE (NEGATIVE); METHADONE SCREEN, URINE NEGATIVE (NEGATIVE); OPIATE SCREEN,URINE NEGATIVE (NEGATIVE); PHENCYCLIDINE SCREEN,URINE NEGATIVE (NEGATIVE)
[2023-04-17 10:51] LABS: ALCOHOL, URINE DRUG SCREEN NEGATIVE (NEGATIVE)
[2023-04-17] MEDS ORDERED: NICOTINE 14 MG/24 HOUR PATCH TD PRN (18:00)
[2023-04-17] MEDS: QUEtiapine FUMARATE 100 MG TABLET PO PRN (21:11)
[2023-04-17 21:48] VITALS: BP 110/62; PULSE 95; RESP 18; TEMP 97.4
[2023-04-18] MEDS: DOCUSATE SODIUM 100 MG CAPSULE PO SCH ×2 (08:23→16:06)
[2023-04-18] MEDS: PANTOPRAZOLE SODIUM 40 MG DR TABLET PO SCH (08:23)
[2023-04-18] MEDS: ARIPiprazole 10 MG TABLET PO SCH (08:23)
[2023-04-18 09:00] VITALS: BP 129/76; PULSE 100; RESP 18; TEMP 98.7
[2023-04-18 11:42] LABS: BASOPHILS % (AUTO) 0.8 % (0.0-2.0); EOSINOPHILS % (AUTO) 0.8 % (1.0-6.0); HEMATOCRIT 43.7 % (41-53); HEMOGLOBIN 14.7 g/dL (13.5-17.5); LYMPHOCYTES # (AUTO) 1.2 K/uL (1.0-4.8); LYMPHOCYTES % (AUTO) 26.7 % (22.0-44.0); MEAN CORPUSCULAR HEMOGLOBIN 32.4 pg (26.0-34.0); MEAN CORPUSCULAR HGB CONC 33.8 G/dL (31.0-37.0); MEAN CORPUSCULAR VOLUME 96 fL (80-100); MONOCYTES # (AUTO) 0.3 K/uL (0.1-1.0); MONOCYTES % (AUTO) 7.4 % (2.0-9.0); NEUTROPHILS # (AUTO) 2.8 K/uL (1.8-7.7); NEUTROPHILS % (AUTO) 64.3 % (40.0-70.0); PLATELET COUNT (AUTO) 182 K/uL (150-450); RED BLOOD CELL COUNT(AUTO) 4.56 MIL/uL (4.50-5.90); RED CELL DISTRIBUTION WIDTH 13.1 % (11.5-14.5); WHITE BLOOD COUNT (AUTO) 4.4 K/uL (4.5-11.0)
[2023-04-18 11:52] LABS: ANION GAP 9 mmol/L (8-16); CALCIUM, TOTAL 8.9 mg/dL (8.8-10.5); CARBON DIOXIDE 28 mmol/L (22-29); CHLORIDE 105 mmol/L (98-107); CREATININE 0.71 mg/dL (0.60-1.30); GLOMERULAR FILTR. RATE CALC > 60 mL/min (>60); GLUCOSE,RANDOM 86 mg/dL (70-110); POTASSIUM 3.7 mmol/L (3.5-5.1); SODIUM SERUM 142 mmol/L (136-145); UREA NITROGEN, BLOOD 7 mg/dL (7-18)
[2023-04-18] MEDS: LORazepam 2 MG TABLET PO PRN ×2 (16:08→20:20)
[2023-04-18] MEDS ORDERED: ARIP10TA38 PO (18:30)
[2023-04-18] MEDS: QUEtiapine FUMARATE 100 MG TABLET PO PRN (20:20)
[2023-04-18 21:46] VITALS: BP 135/85; PULSE 76; RESP 18; TEMP 97.8
[2023-04-19] MEDS: ARIPiprazole 10 MG TABLET PO SCH (08:22)
[2023-04-19] MEDS: DOCUSATE SODIUM 100 MG CAPSULE PO SCH (08:22)
[2023-04-19] MEDS: PANTOPRAZOLE SODIUM 40 MG DR TABLET PO SCH (08:23)
[2023-04-19 09:00] VITALS: BP 143/86; PULSE 104; RESP 19; TEMP 96.9
[2023-04-19] MEDS ORDERED: MULTIVITAMINS, THERAPEUTIC TABLET PO SCH (09:00)
[2023-04-19] MEDS ORDERED: THIAMINE 100 MG TABLET PO SCH (09:00)
[2023-04-19 09:51] LABS: BASOPHILS % (AUTO) 1.3 % (0.0-2.0); EOSINOPHILS % (AUTO) 1.3 % (1.0-6.0); HEMATOCRIT 45.2 % (41-53); HEMOGLOBIN 15.3 g/dL (13.5-17.5); LYMPHOCYTES % (AUTO) 25.3 % (22.0-44.0); MEAN CORPUSCULAR HEMOGLOBIN 32.4 pg (26.0-34.0); MEAN CORPUSCULAR HGB CONC 33.8 G/dL (31.0-37.0); MEAN CORPUSCULAR VOLUME 96 fL (80-100); MONOCYTES # (AUTO) 0.3 K/uL (0.1-1.0); MONOCYTES % (AUTO) 8.6 % (2.0-9.0); NEUTROPHILS # (AUTO) 2.5 K/uL (1.8-7.7); NEUTROPHILS % (AUTO) 63.5 % (40.0-70.0); PLATELET COUNT (AUTO) 188 K/uL (150-450); RED BLOOD CELL COUNT(AUTO) 4.73 MIL/uL (4.50-5.90); RED CELL DISTRIBUTION WIDTH 13.4 % (11.5-14.5)
[2023-04-19] MEDS ORDERED: DOCU-385 PO (10:01)
[2023-04-19 10:02] LABS: ANION GAP 9 mmol/L (8-16); CALCIUM, TOTAL 8.9 mg/dL (8.8-10.5); CARBON DIOXIDE 26 mmol/L (22-29); CHLORIDE 104 mmol/L (98-107); CREATININE 0.62 mg/dL (0.60-1.30); GLOMERULAR FILTR. RATE CALC > 60 mL/min (>60); GLUCOSE,RANDOM 114 mg/dL (70-110); PHOSPHORUS 3.1 mg/dL (2.5-4.9); POTASSIUM 4.4 mmol/L (3.5-5.1); SODIUM SERUM 139 mmol/L (136-145); UREA NITROGEN, BLOOD 12 mg/dL (7-18)
[2023-04-19] MEDS ORDERED: MULT-248 PO (10:05)
[2023-04-19] MEDS ORDERED: PANT-31 PO (10:05)
[2023-04-19] MEDS ORDERED: THIA100T80 PO (10:08)
== END 2023-04-19 14:23 | disposition home or self-care (01) | DRG 750 ==
LOC: EMS 03:51 → AHU 13:34 → UNDOADMIN 13:34 → 3EX 13:34
PROVIDERS: ADMIT Internal Medicine; ATTEND Psychiatry & Neurology Psychiatry
PROC: GZHZZZZ Group Psychotherapy (ICD-10-PCS; principal; 2023-04-17)
PROC: GZ51ZZZ Individual Psychotherapy, Behavioral (ICD-10-PCS; 2023-04-17)
DX: F20.0 Paranoid schizophrenia (principal); R45.851 Suicidal ideations; E11.9 Type 2 diabetes mellitus without complications; E86.0 Dehydration; E78.5 Hyperlipidemia, unspecified; D72.829 Elevated white blood cell count, unspecified; M79.7 Fibromyalgia; Z20.822 Contact with and (suspected) exposure to COVID-19; I10 Essential (primary) hypertension; F15.90 Other stimulant use, unspecified, uncomplicated; Z91.148 Patient's other noncompliance with medication regimen for other reason; Z79.899 Other long term (current) drug therapy; Z81.8 Family history of other mental and behavioral disorders
CPT/HCPCS: 80048; 80053; 80307; 81003; 83735; 84100; 84484; 85025; 87081; 93005; 99285; G0378; J1644

== ENCOUNTER 2023-04-22 07:54 | Inpatient (IN) | payer MEDICAID ==
[~2023-04-22] VITALS: Ht 170.2 cm; Wt 54.2 kg
[~2023-04-22 07:54] MED LIST changes: +DOCU-385 PO; +MULT-248 PO; +PANT-31 PO; +THIA100T80 PO
[2023-04-22] MEDS ORDERED: QUEtiapine FUMARATE 100 MG TABLET PO PRN (10:30)
[2023-04-22 10:43] LABS: BASOPHILS % (AUTO) 0.8 % (0.0-2.0); EOSINOPHILS % (AUTO) 0.8 % (1.0-6.0); HEMATOCRIT 44.5 % (41-53); HEMOGLOBIN 15.2 g/dL (13.5-17.5); LYMPHOCYTES # (AUTO) 0.9 K/uL (1.0-4.8); MEAN CORPUSCULAR HEMOGLOBIN 32.7 pg (26.0-34.0); MEAN CORPUSCULAR HGB CONC 34.1 G/dL (31.0-37.0); MEAN CORPUSCULAR VOLUME 96 fL (80-100); MONOCYTES # (AUTO) 0.2 K/uL (0.1-1.0); NEUTROPHILS # (AUTO) 2.6 K/uL (1.8-7.7); NEUTROPHILS % (AUTO) 69.4 % (40.0-70.0); PLATELET COUNT (AUTO) 208 K/uL (150-450); RED BLOOD CELL COUNT(AUTO) 4.64 MIL/uL (4.50-5.90); RED CELL DISTRIBUTION WIDTH 13.5 % (11.5-14.5); WHITE BLOOD COUNT (AUTO) 3.8 K/uL (4.5-11.0)
[2023-04-22 10:52] LABS: ANION GAP 5 mmol/L (8-16); CARBON DIOXIDE 29 mmol/L (22-29); CHLORIDE 103 mmol/L (98-107); CREATININE 0.68 mg/dL (0.60-1.30); GLOMERULAR FILTR. RATE CALC > 60 mL/min (>60); GLUCOSE,RANDOM 100 mg/dL (70-110); POTASSIUM 4.4 mmol/L (3.5-5.1); SODIUM SERUM 137 mmol/L (136-145); UREA NITROGEN, BLOOD 10 mg/dL (7-18)
[2023-04-22 10:59] LABS: ALANINE AMINOTRANSFERASE 33 U/L (12-78); ALKALINE PHOSPHATASE 67 U/L (46-116); ASPARTATE AMINOTRANSFERASE 21 U/L (15-37); BILIRUBIN,TOTAL 0.2 mg/dL (0.1-1.0); TOTAL PROTEIN, SERUM 6.7 g/dL (6.4-8.2)
[2023-04-22 11:20] LABS: ALCOHOL, BLOOD (SERUM) < 3 mg/dL (0-10)
[2023-04-22 11:46] LABS: APPEARANCE,URINE CLEAR (CLEAR); BILIRUBIN,URINE NEGATIVE (NEGATIVE); COLOR,URINE YELLOW (YELLOW); GLUCOSE, URINE (UA) NEGATIVE (NEGATIVE); KETONES,URINE NEGATIVE (NEGATIVE); LEUKOCYTE ESTERASE ,URINE NEGATIVE (NEGATIVE); NITRATE,URINE NEGATIVE (NEGATIVE); OCCULT BLOOD,URINE NEGATIVE (NEGATIVE); PH,URINE 6.5 (5.0-8.0); PROTEIN,URINE 30-70 mg/dL (NEGATIVE); SPECIFIC GRAVITIY, URINE 1.031 (1.003-1.030); UROBILINOGEN,URINE <=1.0 mg/dL (<=1.0)
[2023-04-22 11:54] LABS: ALCOHOL, URINE DRUG SCREEN NEGATIVE (NEGATIVE); AMPHET/METH SCREEN,URINE NEGATIVE (NEGATIVE); BARBITURATE SCREEN, URINE NEGATIVE (NEGATIVE); BENZODIAZEPINES SCREEN,URINE NEGATIVE (NEGATIVE); CANNABINOID SCREEN,URINE NEGATIVE (NEGATIVE); COCAINE SCREEN,URINE NEGATIVE (NEGATIVE); METHADONE SCREEN, URINE NEGATIVE (NEGATIVE); OPIATE SCREEN,URINE NEGATIVE (NEGATIVE); PHENCYCLIDINE SCREEN,URINE NEGATIVE (NEGATIVE)
[2023-04-22] MEDS: DOCUSATE SODIUM 100 MG CAPSULE PO PRN ×2 (12:00→18:56)
[2023-04-22 12:02] LABS: PH,URINE DRUG SCREEN 6.5 (5.0-8.0)
[2023-04-22 12:25] LABS: COVID AG,FIA SOURCE NASAL SWAB
[2023-04-22 13:01] LABS: SARS-COV2 (COVID) ANTIGEN,FIA Negative (Negative)
[2023-04-22 13:36] VITALS: BP 117/76; PULSE 97; RESP 18; TEMP 97.6
[2023-04-22] MEDS ORDERED: INFLUENZA VIRUS VACCINE QVS 2023-24 (6MO+)/PF 60 MCG/0.5 ML SYRINGE IM. ONE (14:00)
[2023-04-22 14:17] VITALS: BP 117/76; PULSE 97; RESP 18; TEMP 97.6; O2SAT 99
[2023-04-22] MEDS: LORazepam 2 MG TABLET PO PRN (16:57)
[2023-04-22] MEDS: NICOTINE 21 MG/24 HOUR PATCH TD SCH (16:57)
[2023-04-22 20:51] VITALS: BP 112/65; PULSE 106; RESP 18; TEMP 96.9; O2SAT 98
[2023-04-22] MEDS: ZOLPIDEM TARTRATE 10 MG TABLET PO PRN (23:25)
[2023-04-23] MEDS: LORazepam 2 MG TABLET PO PRN (10:00)
[2023-04-23] MEDS: NICOTINE 21 MG/24 HOUR PATCH TD SCH (10:04)
[2023-04-23 10:08] VITALS: BP 95/59; PULSE 103; RESP 19; TEMP 98.9; O2SAT 99
[2023-04-23] MEDS: ARIPiprazole 10 MG TABLET PO SCH ×2 (12:30→16:38)
[2023-04-23] MEDS ORDERED: THIAMINE 100 MG TABLET PO ONE (16:30)
[2023-04-23 22:30] VITALS: BP 132/77; PULSE 108; RESP 18; TEMP 98.3; O2SAT 97
[2023-04-23] MEDS: ZOLPIDEM TARTRATE 10 MG TABLET PO PRN (23:10)
[2023-04-24] MEDS: LORazepam 2 MG TABLET PO PRN ×2 (05:46→16:15)
[2023-04-24 08:37] LABS: PHOSPHORUS 3.1 mg/dL (2.5-4.9)
[2023-04-24 09:20] VITALS: BP 109/67; PULSE 94; RESP 18; TEMP 98.1; O2SAT 98
[2023-04-24] MEDS: NICOTINE 21 MG/24 HOUR PATCH TD SCH (10:08)
[2023-04-24] MEDS: ARIPiprazole 10 MG TABLET PO SCH (10:08)
[2023-04-24] MEDS: MULTIVITAMINS WITH MINERALS, THERAPEUTIC TABLET PO SCH (10:08)
[2023-04-24] MEDS ORDERED: NICOTINE 14 MG/24 HOUR PATCH TD PRN (19:30)
[2023-04-24] MEDS ORDERED: ACETAMINOPHEN 325 MG TABLET PO PRN (19:30)
[2023-04-24] MEDS ORDERED: MAGNESIUM HYDROXIDE SUSPENSION 30 ML UDCUP PO PRN (19:30)
[2023-04-24] MEDS ORDERED: LOPERAMIDE HCL 2 MG CAPSULE PO PRN (19:30)
[2023-04-24] MEDS ORDERED: PETROLATUM,WHITE 28 GM JELLY TP PRN (19:30)
[2023-04-24] MEDS ORDERED: CloNIDine HCL 0.1 MG TABLET PO PRN (19:30)
[2023-04-24] MEDS ORDERED: IBUPROFEN 400 MG TABLET PO PRN (19:30)
[2023-04-24] MEDS ORDERED: DOCUSATE SODIUM 100 MG CAPSULE PO PRN (19:30)
[2023-04-24] MEDS ORDERED: MAG HYDROX/ALUMINUM HYD/SIMETH ES 30 ML SUSPENSION UDCUP PO PRN (19:30)
[2023-04-24] MEDS ORDERED: ALBUTEROL SULFATE HFA 90 MCG/PUFF 8 GM INHALER IH PRN (19:30)
[2023-04-24] MEDS ORDERED: ONDANSETRON HCL 4 MG TABLET PO PRN (19:30)
[2023-04-24] MEDS ORDERED: GuaiFENesin/D-METHORPHAN [SUGAR-FREE] 200-20MG/10 ML SYRUP UDCUP PO PRN (19:30)
[2023-04-24 20:26] VITALS: BP 124/76; PULSE 62; RESP 18; TEMP 97.3; O2SAT 97
[2023-04-24] MEDS: ZOLPIDEM TARTRATE 10 MG TABLET PO PRN (22:09)
[2023-04-25 08:36] LABS: BASOPHILS % (AUTO) 0.8 % (0.0-2.0); EOSINOPHILS % (AUTO) 1.4 % (1.0-6.0); HEMATOCRIT 46.9 % (41-53); HEMOGLOBIN 15.6 g/dL (13.5-17.5); LYMPHOCYTES # (AUTO) 1.3 K/uL (1.0-4.8); LYMPHOCYTES % (AUTO) 27.3 % (22.0-44.0); MEAN CORPUSCULAR HEMOGLOBIN 31.9 pg (26.0-34.0); MEAN CORPUSCULAR HGB CONC 33.2 G/dL (31.0-37.0); MEAN CORPUSCULAR VOLUME 96 fL (80-100); MONOCYTES # (AUTO) 0.3 K/uL (0.1-1.0); MONOCYTES % (AUTO) 6.3 % (2.0-9.0); NEUTROPHILS # (AUTO) 3.1 K/uL (1.8-7.7); NEUTROPHILS % (AUTO) 64.2 % (40.0-70.0); PLATELET COUNT (AUTO) 221 K/uL (150-450); RED BLOOD CELL COUNT(AUTO) 4.88 MIL/uL (4.50-5.90); RED CELL DISTRIBUTION WIDTH 13.5 % (11.5-14.5); WHITE BLOOD COUNT (AUTO) 4.8 K/uL (4.5-11.0)
[2023-04-25 08:44] VITALS: BP 122/73; PULSE 101; RESP 18; TEMP 98.4; O2SAT 99
[2023-04-25 08:53] LABS: ALANINE AMINOTRANSFERASE 35 U/L (12-78); ALKALINE PHOSPHATASE 68 U/L (46-116); ANION GAP 7 mmol/L (8-16); ASPARTATE AMINOTRANSFERASE 20 U/L (15-37); BILIRUBIN,TOTAL 0.2 mg/dL (0.1-1.0); CALCIUM, TOTAL 8.8 mg/dL (8.8-10.5); CARBON DIOXIDE 29 mmol/L (22-29); CHLORIDE 104 mmol/L (98-107); CHOL/HDL RATIO 3.2 (4.2-7.3); CHOLESTEROL 167 mg/dL (131-200); CREATININE 0.88 mg/dL (0.60-1.30); GLOMERULAR FILTR. RATE CALC > 60 mL/min (>60); GLUCOSE,RANDOM 104 mg/dL (70-110); HDL CHOLESTEROL 53 mg/dL (40-60); LDL CHOL (CALC.) 83 mg/dL (0-130); POTASSIUM 3.7 mmol/L (3.5-5.1); SODIUM SERUM 140 mmol/L (136-145); TOTAL PROTEIN, SERUM 6.7 g/dL (6.4-8.2); TRIGLYCERIDES 157 mg/dL (15-150); UREA NITROGEN, BLOOD 12 mg/dL (7-18)
[2023-04-25] MEDS: MULTIVITAMINS WITH MINERALS, THERAPEUTIC TABLET PO SCH (08:54)
[2023-04-25] MEDS: ARIPiprazole 10 MG TABLET PO SCH (08:55)
[2023-04-25] MEDS: NICOTINE 21 MG/24 HOUR PATCH TD SCH (08:59)
[2023-04-25] MEDS: LORazepam 2 MG TABLET PO PRN (11:01)
[2023-04-25] MEDS: ZOLPIDEM TARTRATE 10 MG TABLET PO PRN (21:09)
[2023-04-25 21:12] VITALS: BP 116/73; PULSE 106; RESP 18; TEMP 99.1; O2SAT 97
[2023-04-26 09:31] VITALS: BP 119/73; PULSE 86; RESP 19; TEMP 97.9; O2SAT 96
[2023-04-26] MEDS: ARIPiprazole 10 MG TABLET PO SCH (10:12)
[2023-04-26] MEDS: MULTIVITAMINS WITH MINERALS, THERAPEUTIC TABLET PO SCH (10:12)
[2023-04-26] MEDS: LORazepam 2 MG TABLET PO PRN (10:22)
[2023-04-26] MEDS: NICOTINE 21 MG/24 HOUR PATCH TD SCH (10:25)
[2023-04-26 20:23] VITALS: BP 110/80; PULSE 75; RESP 17; TEMP 97.9; O2SAT 98
[2023-04-27] MEDS: ZOLPIDEM TARTRATE 10 MG TABLET PO PRN ×2 (01:41→22:59)
[2023-04-27] MEDS: ARIPiprazole 10 MG TABLET PO SCH (08:14)
[2023-04-27] MEDS: MULTIVITAMINS WITH MINERALS, THERAPEUTIC TABLET PO SCH (08:14)
[2023-04-27] MEDS: NICOTINE 21 MG/24 HOUR PATCH TD SCH (08:33)
[2023-04-27 08:51] VITALS: BP 106/70; PULSE 81; RESP 18; TEMP 97.7; O2SAT 65
[2023-04-27] MEDS: LORazepam 2 MG TABLET PO PRN (18:29)
[2023-04-27] MEDS: DOCUSATE SODIUM 100 MG CAPSULE PO PRN (18:29)
[2023-04-27 21:26] VITALS: BP 130/84; PULSE 100; RESP 18; TEMP 98; O2SAT 95
[2023-04-28] MEDS: ARIPiprazole 10 MG TABLET PO SCH (08:11)
[2023-04-28] MEDS: MULTIVITAMINS WITH MINERALS, THERAPEUTIC TABLET PO SCH (08:11)
[2023-04-28] MEDS: NICOTINE 21 MG/24 HOUR PATCH TD SCH (08:18)
[2023-04-28 12:04] VITALS: BP 116/70; PULSE 96; RESP 19; TEMP 97.6; O2SAT 96
[2023-04-28 20:00] VITALS: BP 113/74; PULSE 85; RESP 18; TEMP 97.6; O2SAT 98
[2023-04-28] MEDS: ZOLPIDEM TARTRATE 10 MG TABLET PO PRN (23:26)
[2023-04-29] MEDS: MULTIVITAMINS WITH MINERALS, THERAPEUTIC TABLET PO SCH (08:26)
[2023-04-29] MEDS: ARIPiprazole 10 MG TABLET PO SCH (08:26)
[2023-04-29] MEDS: NICOTINE 21 MG/24 HOUR PATCH TD SCH (08:26)
[2023-04-29] MEDS ORDERED: ARIPiprazole LAUROXIL,SUBMICR. ER SUSPENSION 675 MG/2.4 ML SYRINGE IM ONE (08:30)
[2023-04-29] MEDS ORDERED: ARIPiprazole LAUROXIL ER SUSPENSION 882 MG/3.2 ML SYRINGE IM SCH (09:00)
[2023-04-29 09:58] VITALS: BP 119/70; PULSE 96; RESP 18; TEMP 98.2; O2SAT 97
[2023-04-30] MEDS ORDERED: ARIP882S2 IM (15:28)
== END 2023-04-29 13:30 | disposition home or self-care (01) | DRG 750 ==
LOC: EMS 07:54 → 3EI 11:19
PROVIDERS: ADMIT Psychiatry & Neurology Psychiatry; ATTEND Psychiatry & Neurology Psychiatry
PROC: GZHZZZZ Group Psychotherapy (ICD-10-PCS; principal; 2023-04-23)
PROC: GZ56ZZZ Individual Psychotherapy, Supportive (ICD-10-PCS; 2023-04-23)
DX: F20.0 Paranoid schizophrenia (principal); E44.0 Moderate protein-calorie malnutrition; R45.851 Suicidal ideations; Z20.822 Contact with and (suspected) exposure to COVID-19; D72.819 Decreased white blood cell count, unspecified; F12.10 Cannabis abuse, uncomplicated; G47.00 Insomnia, unspecified; Z28.21 Immunization not carried out because of patient refusal; Z79.899 Other long term (current) drug therapy; Z81.8 Family history of other mental and behavioral disorders; Z68.1 Body mass index [BMI] 19.9 or less, adult
CPT/HCPCS: 80053; 80061; 80307; 81003; 83036; 83735; 84100; 84443; 85025; 87081; 93005; 99285; G0480; Q9967

== ENCOUNTER 2023-05-26 06:39 | Inpatient (IN) | payer MEDICAID ==
[~2023-05-26] VITALS: Ht 170.2 cm; Wt 57.2 kg
[~2023-05-26 06:39] MED LIST changes: +ARIP882S2 IM; -DOCU-385 PO; -MULT-248 PO; -PANT-31 PO; -THIA100T80 PO
[2023-05-26 07:21] LABS: COVID AG,FIA SOURCE NASAL SWAB
[2023-05-26 07:27] LABS: BASOPHILS % (AUTO) 0.8 % (0.0-2.0); EOSINOPHILS % (AUTO) 0.9 % (1.0-6.0); HEMATOCRIT 50.1 % (41-53); HEMOGLOBIN 17.1 g/dL (13.5-17.5); LYMPHOCYTES % (AUTO) 20.6 % (22.0-44.0); MEAN CORPUSCULAR HEMOGLOBIN 32.2 pg (26.0-34.0); MEAN CORPUSCULAR HGB CONC 34.1 G/dL (31.0-37.0); MEAN CORPUSCULAR VOLUME 94 fL (80-100); MONOCYTES # (AUTO) 0.3 K/uL (0.1-1.0); MONOCYTES % (AUTO) 6.4 % (2.0-9.0); NEUTROPHILS # (AUTO) 3.3 K/uL (1.8-7.7); NEUTROPHILS % (AUTO) 71.3 % (40.0-70.0); PLATELET COUNT (AUTO) 205 K/uL (150-450); RED BLOOD CELL COUNT(AUTO) 5.31 MIL/uL (4.50-5.90); RED CELL DISTRIBUTION WIDTH 13.2 % (11.5-14.5); WHITE BLOOD COUNT (AUTO) 4.7 K/uL (4.5-11.0)
[2023-05-26 07:43] LABS: ANION GAP 9 mmol/L (8-16); CALCIUM, TOTAL 9.2 mg/dL (8.8-10.5); CARBON DIOXIDE 29 mmol/L (22-29); CHLORIDE 104 mmol/L (98-107); CREATININE 0.85 mg/dL (0.60-1.30); GLOMERULAR FILTR. RATE CALC > 60 mL/min (>60); GLUCOSE,RANDOM 106 mg/dL (70-110); POTASSIUM 3.8 mmol/L (3.5-5.1); SODIUM SERUM 142 mmol/L (136-145); UREA NITROGEN, BLOOD 10 mg/dL (7-18)
[2023-05-26 07:47] LABS: ALANINE AMINOTRANSFERASE 53 U/L (12-78); ALBUMIN 4.5 g/dL (3.4-5.0); ALKALINE PHOSPHATASE 67 U/L (46-116); ASPARTATE AMINOTRANSFERASE 18 U/L (15-37); BILIRUBIN,TOTAL 0.7 mg/dL (0.1-1.0); TOTAL PROTEIN, SERUM 7.5 g/dL (6.4-8.2)
[2023-05-26 07:49] LABS: ALCOHOL, BLOOD (SERUM) < 3 mg/dL (0-10)
[2023-05-26 08:11] LABS: ALCOHOL, URINE DRUG SCREEN NEGATIVE (NEGATIVE); AMPHET/METH SCREEN,URINE NEGATIVE (NEGATIVE); BARBITURATE SCREEN, URINE NEGATIVE (NEGATIVE); BENZODIAZEPINES SCREEN,URINE NEGATIVE (NEGATIVE); CANNABINOID SCREEN,URINE POSITIVE (NEGATIVE); COCAINE SCREEN,URINE NEGATIVE (NEGATIVE); METHADONE SCREEN, URINE NEGATIVE (NEGATIVE); OPIATE SCREEN,URINE NEGATIVE (NEGATIVE); PHENCYCLIDINE SCREEN,URINE NEGATIVE (NEGATIVE)
[2023-05-26 08:25] LABS: SARS-COV2 (COVID) ANTIGEN,FIA Negative (Negative)
[2023-05-26] MEDS ORDERED: HALOPERIDOL 5 MG TABLET PO PRN (10:00)
[2023-05-26] MEDS ORDERED: ZOLPIDEM TARTRATE 10 MG TABLET PO PRN (10:00)
[2023-05-26] MEDS: LORazepam 2 MG TABLET PO PRN (17:43)
[2023-05-27] MEDS: INFLUENZA VIRUS VACCINE QVS 2023-24 (6MO+)/PF 60 MCG/0.5 ML SYRINGE IM. ONE (03:30)
[2023-05-27 03:50] VITALS: BP 116/79; PULSE 86; RESP 18; TEMP 98.3
[2023-05-27 08:06] VITALS: BP 111/64; PULSE 93; RESP 17; TEMP 97.6; O2SAT 95
[2023-05-27 08:41] LABS: CHOL/HDL RATIO 3.7 (4.2-7.3); FREE T4 (FREE THYROXINE) 1.07 ng/dL (0.76-1.46); THYROID STIMULATING HORMONE 2.21 uIU/mL (0.36-3.74)
[2023-05-27] MEDS ORDERED: ESCI-8 PO (09:41)
[2023-05-27] MEDS: ESCITALOPRAM OXALATE 10 MG TABLET PO SCH (14:03)
[2023-05-27] MEDS: ARIPiprazole 10 MG TABLET PO SCH (14:03)
[2023-05-27] MEDS ORDERED: CloNIDine HCL 0.1 MG TABLET PO PRN (20:00)
[2023-05-27] MEDS ORDERED: GuaiFENesin/D-METHORPHAN [SUGAR-FREE] 200-20MG/10 ML SYRUP UDCUP PO PRN (20:00)
[2023-05-27] MEDS ORDERED: PETROLATUM,WHITE 28 GM JELLY TP PRN (20:00)
[2023-05-27] MEDS ORDERED: DOCUSATE SODIUM 100 MG CAPSULE PO PRN (20:00)
[2023-05-27] MEDS ORDERED: LOPERAMIDE HCL 2 MG CAPSULE PO PRN (20:00)
[2023-05-27] MEDS ORDERED: ALBUTEROL SULFATE HFA 90 MCG/PUFF 8 GM INHALER IH PRN (20:00)
[2023-05-27] MEDS ORDERED: NICOTINE 14 MG/24 HOUR PATCH TD PRN (20:00)
[2023-05-27] MEDS ORDERED: MAG HYDROX/ALUMINUM HYD/SIMETH ES 30 ML SUSPENSION UDCUP PO PRN (20:00)
[2023-05-27] MEDS ORDERED: MAGNESIUM HYDROXIDE SUSPENSION 30 ML UDCUP PO PRN (20:00)
[2023-05-27] MEDS ORDERED: ONDANSETRON HCL 4 MG TABLET PO PRN (20:00)
[2023-05-27] MEDS ORDERED: IBUPROFEN 400 MG TABLET PO PRN (20:00)
[2023-05-27] MEDS ORDERED: ACETAMINOPHEN 325 MG TABLET PO PRN (20:00)
[2023-05-27 23:08] VITALS: BP 121/72; PULSE 86; RESP 18; TEMP 98.6; O2SAT 98
[2023-05-28 08:41] VITALS: BP 105/63; PULSE 96; RESP 16; TEMP 97.9; O2SAT 98
[2023-05-28] MEDS: ARIPiprazole LAUROXIL ER SUSPENSION 882 MG/3.2 ML SYRINGE IM SCH (17:07)
[2023-05-28 22:39] VITALS: BP 106/69; PULSE 90; RESP 18; TEMP 97.8; O2SAT 98
[2023-05-29 07:54] LABS: APPEARANCE,URINE TURBID (CLEAR); BILIRUBIN,URINE NEGATIVE (NEGATIVE); COLOR,URINE YELLOW (YELLOW); GLUCOSE, URINE (UA) NEGATIVE (NEGATIVE); KETONES,URINE NEGATIVE (NEGATIVE); LEUKOCYTE ESTERASE ,URINE NEGATIVE (NEGATIVE); NITRATE,URINE NEGATIVE (NEGATIVE); OCCULT BLOOD,URINE NEGATIVE (NEGATIVE); PROTEIN,URINE TRACE mg/dL (NEGATIVE)
[2023-05-29 08:01] LABS: ALCOHOL, URINE DRUG SCREEN NEGATIVE (NEGATIVE); AMPHET/METH SCREEN,URINE NEGATIVE (NEGATIVE); BARBITURATE SCREEN, URINE NEGATIVE (NEGATIVE); BENZODIAZEPINES SCREEN,URINE NEGATIVE (NEGATIVE); CANNABINOID SCREEN,URINE NEGATIVE (NEGATIVE); COCAINE SCREEN,URINE NEGATIVE (NEGATIVE); METHADONE SCREEN, URINE NEGATIVE (NEGATIVE); OPIATE SCREEN,URINE NEGATIVE (NEGATIVE); PHENCYCLIDINE SCREEN,URINE NEGATIVE (NEGATIVE)
[2023-05-29 08:20] LABS: HEMOGLOBIN A1C 5.4 % (3.8-5.6)
[2023-05-29 08:21] LABS: CHOL/HDL RATIO 3.6 (4.2-7.3); THYROID STIMULATING HORMONE 1.18 uIU/mL (0.36-3.74)
[2023-05-29 08:40] VITALS: BP 96/57; PULSE 84; RESP 16; TEMP 97.3; O2SAT 100
[2023-05-29 22:17] VITALS: BP 110/68; PULSE 88; RESP 18; TEMP 97.3; O2SAT 99
[2023-05-30 08:14] VITALS: BP 97/57; PULSE 90; RESP 18; TEMP 97.8; O2SAT 100
[2023-05-30 20:48] VITALS: BP 126/75; PULSE 72; RESP 17; TEMP 97.1; O2SAT 97
[2023-05-31 09:03] VITALS: BP 111/61; PULSE 96; RESP 16; TEMP 98.4; O2SAT 94
[2023-05-31 20:11] VITALS: BP 115/66; PULSE 96; RESP 17; TEMP 98.6; O2SAT 96
[2023-06-01 08:02] VITALS: BP 109/60; PULSE 95; RESP 16; TEMP 98.3; O2SAT 100
[2023-06-01] MEDS ORDERED: ESCI-8 PO (09:28)
[2023-06-26] MEDS ORDERED: ARIPiprazole LAUROXIL ER SUSPENSION 882 MG/3.2 ML SYRINGE IM SCH (09:00)
== END 2023-06-01 15:46 | disposition home or self-care (01) | DRG 750 ==
LOC: EMS 06:40 → B3A 05-27 02:00 → EMS 05-27 02:34
PROVIDERS: ADMIT Psychiatry & Neurology Child & Adolescent Psychiatry; ATTEND Psychiatry & Neurology Psychiatry
PROC: GZHZZZZ Group Psychotherapy (ICD-10-PCS; principal; 2023-05-28)
PROC: GZ51ZZZ Individual Psychotherapy, Behavioral (ICD-10-PCS; 2023-05-28)
DX: F20.0 Paranoid schizophrenia (principal); R45.851 Suicidal ideations; F12.10 Cannabis abuse, uncomplicated; Z20.822 Contact with and (suspected) exposure to COVID-19; F31.9 Bipolar disorder, unspecified; Z79.899 Other long term (current) drug therapy; Z81.8 Family history of other mental and behavioral disorders; Z91.148 Patient's other noncompliance with medication regimen for other reason
CPT/HCPCS: 80053; 80061; 80307; 81003; 83036; 84439; 84443; 85025; 87081; 99285; G0480; Q9967

== ENCOUNTER 2023-06-02 23:28 | Emergency (ER) | payer MEDICAID ==
[~2023-06-02] VITALS: Ht 170.2 cm; Wt 77.3 kg
[~2023-06-02 23:28] MED LIST changes: -ARIP10TA38 PO; +ESCI-8 PO
[2023-06-03 00:50] VITALS: BP 136/74; PULSE 79; RESP 16; TEMP 98.1
[2023-06-03] MEDS ORDERED: IBUPROFEN 600 MG TABLET PO ONE (01:15)
[2023-06-03] MEDS ORDERED: ACETAMINOPHEN 500 MG TABLET PO ONE (01:15)
== END 2023-06-03 01:14 | disposition left against medical advice (07) ==
LOC: EMS 23:30
DX: M25.572 Pain in left ankle and joints of left foot (principal); Z53.21 Procedure and treatment not carried out due to patient leaving prior to being seen by health care provider
CPT/HCPCS: 99281; Z7502

== ENCOUNTER 2024-01-02 01:13 | Emergency (ER) | payer MEDICAID | END 2024-01-02 01:24 | disposition left against medical advice (07) | LOC: EMS 01:15 | DX: Z53.21 Procedure and treatment not carried out due to patient leaving prior to being seen by health care provider (principal) ==

== ENCOUNTER 2024-01-04 20:45 | Emergency (ER) | payer MEDICAID ==
[~2024-01-04] VITALS: Ht 170.2 cm; Wt 63.6 kg
[2024-01-04 20:51] VITALS: BP 118/72; PULSE 94; RESP 18; TEMP 98.3; O2SAT 98
== END 2024-01-04 23:13 | disposition left against medical advice (07) ==
LOC: EMS 20:45
DX: F20.9 Schizophrenia, unspecified (principal); Z53.21 Procedure and treatment not carried out due to patient leaving prior to being seen by health care provider

== ENCOUNTER 2024-01-05 00:42 | Emergency (ER) | payer MEDICAID ==
[~2024-01-05] VITALS: Ht 170.2 cm; Wt 63.6 kg
[2024-01-05 00:47] VITALS: BP 96/68; PULSE 93; RESP 18; TEMP 97.9; O2SAT 98
== END 2024-01-05 03:30 | disposition left against medical advice (07) ==
LOC: EMS 00:43
DX: F20.9 Schizophrenia, unspecified (principal); Z53.21 Procedure and treatment not carried out due to patient leaving prior to being seen by health care provider

== ENCOUNTER 2024-01-12 22:45 | Inpatient (IN) | payer MEDICAID ==
[~2024-01-12] VITALS: Ht 170.2 cm; Wt 52.4 kg
[2024-01-13 00:04] LABS: BASOPHILS % (AUTO) 0.6 % (0.0-2.0); EOSINOPHILS % (AUTO) 0.7 % (1.0-6.0); HEMATOCRIT 49.8 % (41-53); HEMOGLOBIN 16.7 g/dL (13.5-17.5); LYMPHOCYTES # (AUTO) 1.6 K/uL (1.0-4.8); LYMPHOCYTES % (AUTO) 28.8 % (22.0-44.0); MEAN CORPUSCULAR HEMOGLOBIN 31.9 pg (26.0-34.0); MEAN CORPUSCULAR HGB CONC 33.6 G/dL (31.0-37.0); MEAN CORPUSCULAR VOLUME 95 fL (80-100); MONOCYTES # (AUTO) 0.4 K/uL (0.1-1.0); MONOCYTES % (AUTO) 6.4 % (2.0-9.0); NEUTROPHILS # (AUTO) 3.5 K/uL (1.8-7.7); NEUTROPHILS % (AUTO) 63.5 % (40.0-70.0); PLATELET COUNT (AUTO) 221 K/uL (150-450); RED BLOOD CELL COUNT(AUTO) 5.23 MIL/uL (4.50-5.90); RED CELL DISTRIBUTION WIDTH 14.5 % (11.5-14.5); WHITE BLOOD COUNT (AUTO) 5.6 K/uL (4.5-11.0)
[2024-01-13 00:13] LABS: ANION GAP 8 mmol/L (8-16); CALCIUM, TOTAL 8.7 mg/dL (8.8-10.5); CARBON DIOXIDE 28 mmol/L (22-29); CHLORIDE 102 mmol/L (98-107); CREATININE 0.87 mg/dL (0.60-1.30); GLOMERULAR FILTR. RATE CALC > 60 mL/min (>60); GLUCOSE,RANDOM 113 mg/dL (70-110); POTASSIUM 3.8 mmol/L (3.5-5.1); SODIUM SERUM 138 mmol/L (136-145); UREA NITROGEN, BLOOD 7 mg/dL (7-18)
[2024-01-13 00:35] LABS: ALCOHOL, BLOOD (SERUM) < 3 mg/dL (0-10)
[2024-01-13 02:28] LABS: APPEARANCE,URINE CLEAR (CLEAR); BILIRUBIN,URINE NEGATIVE (NEGATIVE); COLOR,URINE YELLOW (YELLOW); GLUCOSE, URINE (UA) NEGATIVE (NEGATIVE); KETONES,URINE NEGATIVE (NEGATIVE); LEUKOCYTE ESTERASE ,URINE NEGATIVE (NEGATIVE); NITRATE,URINE NEGATIVE (NEGATIVE); OCCULT BLOOD,URINE NEGATIVE (NEGATIVE); PH,URINE 5.5 (5.0-8.0); PH,URINE DRUG SCREEN 5.5 (5.0-8.0); SPECIFIC GRAVITIY, URINE 1.026 (1.003-1.030); UROBILINOGEN,URINE <=1.0 mg/dL (<=1.0)
[2024-01-13 02:33] LABS: PROTEIN,URINE NEGATIVE (NEGATIVE)
[2024-01-13 02:35] LABS: ALCOHOL, URINE DRUG SCREEN NEGATIVE (NEGATIVE); AMPHET/METH SCREEN,URINE NEGATIVE (NEGATIVE); BARBITURATE SCREEN, URINE NEGATIVE (NEGATIVE); BENZODIAZEPINES SCREEN,URINE NEGATIVE (NEGATIVE); CANNABINOID SCREEN,URINE POSITIVE (NEGATIVE); COCAINE SCREEN,URINE NEGATIVE (NEGATIVE); METHADONE SCREEN, URINE NEGATIVE (NEGATIVE); OPIATE SCREEN,URINE NEGATIVE (NEGATIVE); PHENCYCLIDINE SCREEN,URINE NEGATIVE (NEGATIVE)
[2024-01-13] MEDS: LORazepam 2 MG TABLET PO PRN (04:09)
[2024-01-13] MEDS: HALOPERIDOL 5 MG TABLET PO PRN (10:10)
[2024-01-13 13:53] VITALS: BP 130/87; PULSE 110; RESP 16; TEMP 96.5; O2SAT 98
[2024-01-13 14:32] VITALS: BP 130/87; PULSE 110; RESP 16; TEMP 97.2; O2SAT 98
[2024-01-13 21:15] VITALS: BP 99/62; PULSE 80; RESP 18; TEMP 97.5; O2SAT 99
[2024-01-14] MEDS ORDERED: ACETAMINOPHEN 325 MG TABLET PO PRN (09:45)
[2024-01-14] MEDS ORDERED: MAG HYDROX/ALUMINUM HYD/SIMETH ES 30 ML SUSPENSION UDCUP PO PRN (09:45)
[2024-01-14] MEDS ORDERED: LOPERAMIDE HCL 2 MG CAPSULE PO PRN (09:45)
[2024-01-14] MEDS ORDERED: MAGNESIUM HYDROXIDE SUSPENSION 30 ML UDCUP PO PRN (09:45)
[2024-01-14] MEDS ORDERED: ONDANSETRON 4 MG TABLET PO PRN (09:45)
[2024-01-14] MEDS ORDERED: CloNIDine HCL 0.1 MG TABLET PO PRN (09:45)
[2024-01-14] MEDS ORDERED: DOCUSATE SODIUM 100 MG CAPSULE PO PRN (09:45)
[2024-01-14] MEDS ORDERED: IBUPROFEN 400 MG TABLET PO PRN (09:45)
[2024-01-14] MEDS ORDERED: GuaiFENesin/D-METHORPHAN [SUGAR-FREE] 200-20MG/10 ML SYRUP UDCUP PO PRN (09:45)
[2024-01-14] MEDS ORDERED: PETROLATUM,WHITE 28 GM JELLY TP PRN (09:45)
[2024-01-14] MEDS ORDERED: ALBUTEROL SULFATE HFA 90 MCG/PUFF 8 GM INHALER IH PRN (09:45)
[2024-01-14] MEDS ORDERED: NICOTINE 14 MG/24 HOUR PATCH TD PRN (09:45)
[2024-01-14 09:55] VITALS: BP 119/73; PULSE 107; RESP 18; TEMP 107; O2SAT 100
[2024-01-14 12:32] LABS: COVID AG,FIA SOURCE NASAL SWAB
[2024-01-14 12:53] LABS: SARS-COV2 (COVID) ANTIGEN,FIA Negative (Negative)
[2024-01-14] MEDS: ESCITALOPRAM OXALATE 10 MG TABLET PO SCH (13:36)
[2024-01-14] MEDS: ARIPiprazole 15 MG TABLET PO SCH (13:36)
[2024-01-14 20:43] VITALS: RESP 18
[2024-01-14] MEDS: ZOLPIDEM TARTRATE 10 MG TABLET PO PRN (22:26)
[2024-01-15 07:48] LABS: MAGNESIUM 2.2 mg/dL (1.80-2.40); PHOSPHORUS 3.6 mg/dL (2.5-4.9); THYROID STIMULATING HORMONE 0.95 uIU/mL (0.36-3.74)
[2024-01-15 07:52] LABS: HEMOGLOBIN A1C 4.9 % (3.8-5.6)
[2024-01-15 10:30] VITALS: BP 93/52; PULSE 97; RESP 19; TEMP 98.1; O2SAT 96
[2024-01-15 20:30] VITALS: BP 101/62; PULSE 85; RESP 18; TEMP 97.6; O2SAT 96
[2024-01-16 08:50] VITALS: BP 115/76; PULSE 86; RESP 18; TEMP 98.2; O2SAT 99
[2024-01-16 21:08] VITALS: BP 98/61; PULSE 60; RESP 18; TEMP 97.1; O2SAT 99
[2024-01-17 09:01] VITALS: BP 115/71; PULSE 74; RESP 16; TEMP 97.5; O2SAT 99
[2024-01-17] MEDS ORDERED: ESCI-8 PO (14:27)
[2024-01-17] MEDS ORDERED: ARIP15TA27 PO (14:27)
== END 2024-01-17 16:31 | disposition home or self-care (01) | DRG 750 ==
LOC: EMS 22:45 → 3EI 01-13 14:13
PROVIDERS: ADMIT Psychiatry & Neurology Child & Adolescent Psychiatry; ATTEND Psychiatry & Neurology Child & Adolescent Psychiatry
PROC: GZHZZZZ Group Psychotherapy (ICD-10-PCS; principal; 2024-01-15)
DX: F25.0 Schizoaffective disorder, bipolar type (principal); E44.0 Moderate protein-calorie malnutrition; R45.851 Suicidal ideations; Z91.148 Patient's other noncompliance with medication regimen for other reason; F90.9 Attention-deficit hyperactivity disorder, unspecified type; Z20.822 Contact with and (suspected) exposure to COVID-19; F31.9 Bipolar disorder, unspecified; F12.10 Cannabis abuse, uncomplicated; Z68.1 Body mass index [BMI] 19.9 or less, adult; G47.00 Insomnia, unspecified; R73.9 Hyperglycemia, unspecified; Z79.899 Other long term (current) drug therapy; Z81.8 Family history of other mental and behavioral disorders
CPT/HCPCS: 80048; 80061; 80307; 81003; 83036; 83735; 84100; 84443; 85025; 99285; G0480

== ENCOUNTER 2024-04-21 21:50 | Emergency (ER) | payer MEDICAID ==
[~2024-04-21] VITALS: Ht 170.2 cm; Wt 63.6 kg
[~2024-04-21 21:50] MED LIST changes: +ARIP15TA27 PO; -ARIP882S2 IM
[2024-04-21 22:47] VITALS: BP 132/86; PULSE 126; RESP 16; TEMP 98.5; O2SAT 98
[2024-04-21 23:44] LABS: BASOPHILS % (AUTO) 0.8 % (0.0-2.0); EOSINOPHILS % (AUTO) 0.1 % (1.0-6.0); HEMATOCRIT 49.1 % (41-53); HEMOGLOBIN 16.9 g/dL (13.5-17.5); LYMPHOCYTES # (AUTO) 1.4 K/uL (1.0-4.8); LYMPHOCYTES % (AUTO) 17.4 % (22.0-44.0); MEAN CORPUSCULAR HEMOGLOBIN 32.5 pg (26.0-34.0); MEAN CORPUSCULAR HGB CONC 34.5 G/dL (31.0-37.0); MEAN CORPUSCULAR VOLUME 94 fL (80-100); MONOCYTES # (AUTO) 0.5 K/uL (0.1-1.0); MONOCYTES % (AUTO) 5.7 % (2.0-9.0); NEUTROPHILS # (AUTO) 6.1 K/uL (1.8-7.7); PLATELET COUNT (AUTO) 186 K/uL (150-450); RED BLOOD CELL COUNT(AUTO) 5.21 MIL/uL (4.50-5.90); RED CELL DISTRIBUTION WIDTH 12.9 % (11.5-14.5)
[2024-04-21 23:47] LABS: ANION GAP 6 mmol/L (8-16); CALCIUM, TOTAL 9.2 mg/dL (8.8-10.5); CARBON DIOXIDE 29 mmol/L (22-29); CHLORIDE 100 mmol/L (98-107); CREATININE 0.88 mg/dL (0.60-1.30); GLOMERULAR FILTR. RATE CALC > 60 mL/min (>60); GLUCOSE,RANDOM 95 mg/dL (70-110); POTASSIUM 3.7 mmol/L (3.5-5.1); SODIUM SERUM 135 mmol/L (136-145); UREA NITROGEN, BLOOD 7 mg/dL (7-18)
== END 2024-04-22 02:50 | disposition left against medical advice (07) ==
LOC: EMS 21:56
DX: F20.9 Schizophrenia, unspecified (principal); Z53.21 Procedure and treatment not carried out due to patient leaving prior to being seen by health care provider
CPT/HCPCS: 36415; 80048; 85025; G0480

== ENCOUNTER 2024-04-28 12:58 | Inpatient (IN) | payer MEDICAID ==
[~2024-04-28] VITALS: Ht 170.2 cm; Wt 59.1 kg
[2024-04-28 13:43] LABS: EOSINOPHILS % (AUTO) 0.2 % (1.0-6.0); PLATELET COUNT (AUTO) 215 K/uL (150-450); RED BLOOD CELL COUNT(AUTO) 5.11 MIL/uL (4.50-5.90); WHITE BLOOD COUNT (AUTO) 7.8 K/uL (4.5-11.0)
[2024-04-28 13:54] LABS: ANION GAP 8 mmol/L (8-16); BASOPHILS % (AUTO) 0.6 % (0.0-2.0); CARBON DIOXIDE 29 mmol/L (22-29); CHLORIDE 103 mmol/L (98-107); CREATININE 0.87 mg/dL (0.60-1.30); GLOMERULAR FILTR. RATE CALC > 60 mL/min (>60); GLUCOSE,RANDOM 91 mg/dL (70-110); HEMATOCRIT 48.3 % (41-53); HEMOGLOBIN 16.7 g/dL (13.5-17.5); LYMPHOCYTES # (AUTO) 1.7 K/uL (1.0-4.8); LYMPHOCYTES % (AUTO) 21.8 % (22.0-44.0); MEAN CORPUSCULAR HEMOGLOBIN 32.8 pg (26.0-34.0); MEAN CORPUSCULAR HGB CONC 34.7 G/dL (31.0-37.0); MEAN CORPUSCULAR VOLUME 94 fL (80-100); MONOCYTES # (AUTO) 0.5 K/uL (0.1-1.0); MONOCYTES % (AUTO) 6.2 % (2.0-9.0); NEUTROPHILS # (AUTO) 5.6 K/uL (1.8-7.7); NEUTROPHILS % (AUTO) 71.2 % (40.0-70.0); POTASSIUM 3.7 mmol/L (3.5-5.1); SODIUM SERUM 140 mmol/L (136-145); UREA NITROGEN, BLOOD 11 mg/dL (7-18)
[2024-04-28 14:02] LABS: ALCOHOL, BLOOD (SERUM) < 3 mg/dL (0-10)
[2024-04-28 14:04] LABS: COVID AG,FIA SOURCE NASAL SWAB
[2024-04-28 14:25] LABS: SARS-COV2 (COVID) ANTIGEN,FIA Negative (Negative)
[2024-04-28 14:37] LABS: APPEARANCE,URINE CLEAR (CLEAR); BILIRUBIN,URINE NEGATIVE (NEGATIVE); COLOR,URINE YELLOW (YELLOW); GLUCOSE, URINE (UA) NEGATIVE (NEGATIVE); KETONES,URINE 80-100 mg/dL (NEGATIVE); LEUKOCYTE ESTERASE ,URINE NEGATIVE (NEGATIVE); NITRATE,URINE NEGATIVE (NEGATIVE); OCCULT BLOOD,URINE NEGATIVE (NEGATIVE); PH,URINE 5.5 (5.0-8.0); PH,URINE DRUG SCREEN 5.5 (5.0-8.0); PROTEIN,URINE TRACE mg/dL (NEGATIVE); SPECIFIC GRAVITIY, URINE 1.035 (1.003-1.030)
[2024-04-28 14:45] LABS: ALCOHOL, URINE DRUG SCREEN NEGATIVE (NEGATIVE); AMPHET/METH SCREEN,URINE NEGATIVE (NEGATIVE); BARBITURATE SCREEN, URINE NEGATIVE (NEGATIVE); BENZODIAZEPINES SCREEN,URINE NEGATIVE (NEGATIVE); CANNABINOID SCREEN,URINE POSITIVE (NEGATIVE); COCAINE SCREEN,URINE NEGATIVE (NEGATIVE); METHADONE SCREEN, URINE NEGATIVE (NEGATIVE); OPIATE SCREEN,URINE NEGATIVE (NEGATIVE); PHENCYCLIDINE SCREEN,URINE NEGATIVE (NEGATIVE)
[2024-04-28] MEDS ORDERED: HALOPERIDOL 5 MG TABLET PO PRN (18:00)
[2024-04-28] MEDS: ZOLPIDEM TARTRATE 10 MG TABLET PO PRN (22:48)
[2024-04-28 23:25] VITALS: BP 116/80; PULSE 92; RESP 18; TEMP 96.5; O2SAT 96
[2024-04-29] MEDS: LORazepam 1 MG TABLET PO PRN (02:36)
[2024-04-29] MEDS: INFLUENZA VIRUS VACCINE TVS (6MO+) 2024-25/PF 45 MCG/0.5 ML SYRINGE IM. ONE (03:54)
[2024-04-29 08:24] VITALS: BP 111/71; PULSE 99; RESP 19; TEMP 98.2; O2SAT 98
[2024-04-29] MEDS: ESCITALOPRAM OXALATE 10 MG TABLET PO SCH (11:54)
[2024-04-29] MEDS: ARIPiprazole 15 MG TABLET PO SCH (11:54)
[2024-04-29] MEDS ORDERED: PETROLATUM,WHITE 28 GM JELLY TP PRN (19:45)
[2024-04-29] MEDS ORDERED: MAG HYDROX/ALUMINUM HYD/SIMETH ES 30 ML SUSPENSION UDCUP PO PRN (19:45)
[2024-04-29] MEDS ORDERED: MAGNESIUM HYDROXIDE SUSPENSION 30 ML UDCUP PO PRN (19:45)
[2024-04-29] MEDS ORDERED: NICOTINE 14 MG/24 HOUR PATCH TD PRN (19:45)
[2024-04-29] MEDS ORDERED: GuaiFENesin/D-METHORPHAN [SUGAR-FREE] 200-20MG/10 ML SYRUP UDCUP PO PRN (19:45)
[2024-04-29] MEDS ORDERED: CloNIDine HCL 0.1 MG TABLET PO PRN (19:45)
[2024-04-29] MEDS ORDERED: DOCUSATE SODIUM 100 MG CAPSULE PO PRN (19:45)
[2024-04-29] MEDS ORDERED: LOPERAMIDE HCL 2 MG CAPSULE PO PRN (19:45)
[2024-04-29] MEDS ORDERED: ONDANSETRON 4 MG TABLET PO PRN (19:45)
[2024-04-29] MEDS ORDERED: ALBUTEROL SULFATE HFA 90 MCG/PUFF 8 GM INHALER IH PRN (19:45)
[2024-04-29] MEDS ORDERED: IBUPROFEN 400 MG TABLET PO PRN (19:45)
[2024-04-29] MEDS ORDERED: ACETAMINOPHEN 325 MG TABLET PO PRN (19:45)
[2024-04-29 20:43] VITALS: BP 95/60; PULSE 90; RESP 16; TEMP 97.8; O2SAT 98
[2024-04-29 21:06] VITALS: BP 134/85; PULSE 96; RESP 18; TEMP 97.8; O2SAT 98
[2024-04-30 08:20] VITALS: BP 126/83; PULSE 92; RESP 18; TEMP 97.9; O2SAT 97
[2024-04-30 09:04] LABS: HEMOGLOBIN A1C 4.8 % (3.8-5.6)
[2024-04-30 09:21] LABS: CHOL/HDL RATIO 2.6 (4.2-7.3); THYROID STIMULATING HORMONE 0.9 uIU/mL (0.36-3.74)
[2024-04-30 20:32] VITALS: BP 107/60; PULSE 81; RESP 15; TEMP 96.2; O2SAT 96
[2024-05-01 08:40] VITALS: BP 110/75; PULSE 96; RESP 16; TEMP 97.3; O2SAT 97
[2024-05-01] MEDS ORDERED: ESCI-8 PO (11:18)
[2024-05-01] MEDS ORDERED: ARIP15TA27 PO (11:18)
== END 2024-05-01 13:10 | disposition home or self-care (01) | DRG 750 ==
LOC: EMS 12:58 → B2S 19:46
PROVIDERS: ADMIT Psychiatry & Neurology Psychiatry; ATTEND Psychiatry & Neurology Psychiatry
PROC: GZHZZZZ Group Psychotherapy (ICD-10-PCS; principal; 2024-04-29)
DX: F25.1 Schizoaffective disorder, depressive type (principal); E44.0 Moderate protein-calorie malnutrition; R45.851 Suicidal ideations; Z20.822 Contact with and (suspected) exposure to COVID-19; F12.10 Cannabis abuse, uncomplicated; F90.9 Attention-deficit hyperactivity disorder, unspecified type; R73.9 Hyperglycemia, unspecified; F17.210 Nicotine dependence, cigarettes, uncomplicated; G47.00 Insomnia, unspecified; Z79.899 Other long term (current) drug therapy; Z68.20 Body mass index [BMI] 20.0-20.9, adult; Z59.00 Homelessness unspecified
CPT/HCPCS: 80048; 80061; 80307; 81003; 83036; 84443; 85025; 99285; G0480

== ENCOUNTER 2024-05-03 08:58 | Inpatient (IN) | payer MEDICAID ==
[~2024-05-03] VITALS: Ht 170.2 cm; Wt 53.9 kg
[2024-05-03 10:42] LABS: BASOPHILS % (AUTO) 0.6 % (0.0-2.0); EOSINOPHILS % (AUTO) 0.2 % (1.0-6.0); HEMATOCRIT 48.3 % (41-53); HEMOGLOBIN 16.5 g/dL (13.5-17.5); LYMPHOCYTES # (AUTO) 0.8 K/uL (1.0-4.8); LYMPHOCYTES % (AUTO) 21.4 % (22.0-44.0); MEAN CORPUSCULAR HEMOGLOBIN 32.3 pg (26.0-34.0); MEAN CORPUSCULAR HGB CONC 34.1 G/dL (31.0-37.0); MEAN CORPUSCULAR VOLUME 95 fL (80-100); MONOCYTES # (AUTO) 0.2 K/uL (0.1-1.0); MONOCYTES % (AUTO) 6.3 % (2.0-9.0); NEUTROPHILS # (AUTO) 2.7 K/uL (1.8-7.7); NEUTROPHILS % (AUTO) 71.5 % (40.0-70.0); PLATELET COUNT (AUTO) 188 K/uL (150-450); RED BLOOD CELL COUNT(AUTO) 5.09 MIL/uL (4.50-5.90); RED CELL DISTRIBUTION WIDTH 12.9 % (11.5-14.5); WHITE BLOOD COUNT (AUTO) 3.8 K/uL (4.5-11.0)
[2024-05-03 11:01] LABS: ALCOHOL, BLOOD (SERUM) < 3 mg/dL (0-10)
[2024-05-03 11:03] LABS: ANION GAP 4 mmol/L (8-16); CARBON DIOXIDE 30 mmol/L (22-29); CHLORIDE 105 mmol/L (98-107); CREATININE 0.89 mg/dL (0.60-1.30); GLOMERULAR FILTR. RATE CALC > 60 mL/min (>60); GLUCOSE,RANDOM 97 mg/dL (70-110); POTASSIUM 3.8 mmol/L (3.5-5.1); SODIUM SERUM 139 mmol/L (136-145); UREA NITROGEN, BLOOD 9 mg/dL (7-18)
[2024-05-03 11:18] LABS: COVID AG,FIA SOURCE NASAL SWAB
[2024-05-03 11:28] LABS: ALCOHOL, URINE DRUG SCREEN NEGATIVE (NEGATIVE); AMPHET/METH SCREEN,URINE NEGATIVE (NEGATIVE); BARBITURATE SCREEN, URINE NEGATIVE (NEGATIVE); BENZODIAZEPINES SCREEN,URINE NEGATIVE (NEGATIVE); CANNABINOID SCREEN,URINE POSITIVE (NEGATIVE); COCAINE SCREEN,URINE NEGATIVE (NEGATIVE); METHADONE SCREEN, URINE NEGATIVE (NEGATIVE); OPIATE SCREEN,URINE NEGATIVE (NEGATIVE); PHENCYCLIDINE SCREEN,URINE NEGATIVE (NEGATIVE)
[2024-05-03 11:36] LABS: APPEARANCE,URINE CLEAR (CLEAR); BILIRUBIN,URINE NEGATIVE (NEGATIVE); COLOR,URINE YELLOW (YELLOW); GLUCOSE, URINE (UA) NEGATIVE (NEGATIVE); LEUKOCYTE ESTERASE ,URINE NEGATIVE (NEGATIVE); NITRATE,URINE NEGATIVE (NEGATIVE); OCCULT BLOOD,URINE NEGATIVE (NEGATIVE); PROTEIN,URINE TRACE mg/dL (NEGATIVE); SPECIFIC GRAVITIY, URINE 1.026 (1.003-1.030)
[2024-05-03 11:42] LABS: SARS-COV2 (COVID) ANTIGEN,FIA Negative (Negative)
[2024-05-03 18:07] VITALS: BP 106/66; PULSE 74; RESP 17; TEMP 98; O2SAT 98
[2024-05-03 20:10] VITALS: BP 109/48; PULSE 68; RESP 19; TEMP 98.5; O2SAT 100
[2024-05-04] MEDS ORDERED: MAGNESIUM HYDROXIDE SUSPENSION 30 ML UDCUP PO PRN ×2 (06:15)
[2024-05-04] MEDS ORDERED: ALBUTEROL SULFATE HFA 90 MCG/PUFF 8 GM INHALER IH PRN ×2 (06:15)
[2024-05-04] MEDS ORDERED: ACETAMINOPHEN 325 MG TABLET PO PRN ×2 (06:15)
[2024-05-04] MEDS ORDERED: LOPERAMIDE HCL 2 MG CAPSULE PO PRN ×2 (06:15)
[2024-05-04] MEDS ORDERED: PETROLATUM,WHITE 28 GM JELLY TP PRN ×2 (06:15)
[2024-05-04] MEDS ORDERED: MAG HYDROX/ALUMINUM HYD/SIMETH ES 30 ML SUSPENSION UDCUP PO PRN ×2 (06:15)
[2024-05-04] MEDS ORDERED: ONDANSETRON 4 MG TABLET PO PRN ×2 (06:15)
[2024-05-04] MEDS ORDERED: DOCUSATE SODIUM 100 MG CAPSULE PO PRN ×2 (06:15)
[2024-05-04] MEDS ORDERED: IBUPROFEN 400 MG TABLET PO PRN ×2 (06:15)
[2024-05-04] MEDS ORDERED: NICOTINE 14 MG/24 HOUR PATCH TD PRN (06:15)
[2024-05-04] MEDS ORDERED: CloNIDine HCL 0.1 MG TABLET PO PRN ×2 (06:15)
[2024-05-04] MEDS ORDERED: GuaiFENesin/D-METHORPHAN [SUGAR-FREE] 200-20MG/10 ML SYRUP UDCUP PO PRN ×2 (06:15)
[2024-05-04 09:19] VITALS: BP 117/79; PULSE 90; RESP 18; TEMP 97.9; O2SAT 95
[2024-05-04] MEDS: ARIPiprazole 15 MG TABLET PO SCH (10:51)
[2024-05-04] MEDS: ESCITALOPRAM OXALATE 10 MG TABLET PO SCH (10:51)
[2024-05-04 22:33] VITALS: BP 98/56; PULSE 78; RESP 16; TEMP 97.6; O2SAT 98
[2024-05-05 08:39] LABS: BASOPHILS % (AUTO) 0.8 % (0.0-2.0); EOSINOPHILS % (AUTO) 0.3 % (1.0-6.0); HEMATOCRIT 48.2 % (41-53); HEMOGLOBIN 16.4 g/dL (13.5-17.5); LYMPHOCYTES % (AUTO) 29.2 % (22.0-44.0); MEAN CORPUSCULAR HEMOGLOBIN 32.2 pg (26.0-34.0); MEAN CORPUSCULAR VOLUME 95 fL (80-100); MONOCYTES # (AUTO) 0.2 K/uL (0.1-1.0); MONOCYTES % (AUTO) 5.5 % (2.0-9.0); NEUTROPHILS # (AUTO) 2.2 K/uL (1.8-7.7); NEUTROPHILS % (AUTO) 64.2 % (40.0-70.0); PLATELET COUNT (AUTO) 194 K/uL (150-450); RED BLOOD CELL COUNT(AUTO) 5.09 MIL/uL (4.50-5.90); RED CELL DISTRIBUTION WIDTH 13.1 % (11.5-14.5); WHITE BLOOD COUNT (AUTO) 3.5 K/uL (4.5-11.0)
[2024-05-05 08:59] LABS: HEMOGLOBIN A1C 4.8 % (3.8-5.6)
[2024-05-05 09:07] LABS: ALANINE AMINOTRANSFERASE 20 U/L (12-78); ALKALINE PHOSPHATASE 53 U/L (46-116); ANION GAP 5 mmol/L (8-16); ASPARTATE AMINOTRANSFERASE 12 U/L (15-37); BILIRUBIN,TOTAL 0.7 mg/dL (0.1-1.0); CARBON DIOXIDE 30 mmol/L (22-29); CHLORIDE 106 mmol/L (98-107); CHOL/HDL RATIO 2.8 (4.2-7.3); CHOLESTEROL 145 mg/dL (131-200); GLOMERULAR FILTR. RATE CALC > 60 mL/min (>60); GLUCOSE,RANDOM 111 mg/dL (70-110); HDL CHOLESTEROL 52 mg/dL (40-60); LDL CHOL (CALC.) 84 mg/dL (0-130); SODIUM SERUM 141 mmol/L (136-145); THYROID STIMULATING HORMONE 1.13 uIU/mL (0.36-3.74); TOTAL PROTEIN, SERUM 6.9 g/dL (6.4-8.2); TRIGLYCERIDES 43 mg/dL (15-150); UREA NITROGEN, BLOOD 10 mg/dL (7-18)
[2024-05-05 09:12] LABS: CALCIUM, TOTAL 8.7 mg/dL (8.8-10.5)
[2024-05-05 09:17] VITALS: BP 113/68; PULSE 75; RESP 18; TEMP 97.9; O2SAT 95
[2024-05-05 20:44] VITALS: BP 107/64; PULSE 82; RESP 18; TEMP 98.1
[2024-05-05] MEDS: ZOLPIDEM TARTRATE 10 MG TABLET PO PRN (20:57)
[2024-05-06] MEDS: ARIPiprazole LAUROXIL,SUBMICR. ER SUSPENSION 675 MG/2.4 ML SYRINGE IM ONE (09:55)
[2024-05-06] MEDS: ARIPiprazole LAUROXIL ER SUSPENSION 882 MG/3.2 ML SYRINGE IM SCH (09:55)
[2024-05-06 15:30] VITALS: BP 99/67; PULSE 78; RESP 18; TEMP 98.8; O2SAT 95
[2024-05-06 21:22] VITALS: BP 102/52; PULSE 83; RESP 18; TEMP 98.1; O2SAT 97
[2024-05-07 07:56] LABS: MAGNESIUM 2.3 mg/dL (1.80-2.40)
[2024-05-07] MEDS: MULTIVITAMINS WITH MINERALS, THERAPEUTIC TABLET PO SCH (09:14)
[2024-05-07 12:02] VITALS: BP 107/7; PULSE 85; RESP 18; TEMP 98; O2SAT 100
[2024-05-07 22:00] VITALS: RESP 18
[2024-05-08 10:21] VITALS: BP 126/73; PULSE 75; RESP 18; TEMP 98.8; O2SAT 99
[2024-05-08 21:35] VITALS: BP 101/59; PULSE 67; RESP 17; TEMP 97.4; O2SAT 96
[2024-05-09 10:56] VITALS: BP 113/62; PULSE 71; RESP 18; TEMP 97.6; O2SAT 96
[2024-05-09 21:34] VITALS: BP 110/70; PULSE 70; RESP 18; TEMP 97.5; O2SAT 99
[2024-05-10 09:10] VITALS: BP 108/69; PULSE 70; RESP 18; TEMP 98.7; O2SAT 98
[2024-05-10 21:24] VITALS: BP 109/67; PULSE 76; RESP 18; TEMP 97.2; O2SAT 98
[2024-05-11 08:01] LABS: ANION GAP 4 mmol/L (8-16); CALCIUM, TOTAL 8.8 mg/dL (8.8-10.5); CARBON DIOXIDE 32 mmol/L (22-29); CHLORIDE 105 mmol/L (98-107); CREATININE 0.82 mg/dL (0.60-1.30); GLOMERULAR FILTR. RATE CALC > 60 mL/min (>60); GLUCOSE,RANDOM 84 mg/dL (70-110); POTASSIUM 4.2 mmol/L (3.5-5.1); SODIUM SERUM 141 mmol/L (136-145); UREA NITROGEN, BLOOD 10 mg/dL (7-18)
[2024-05-11 08:12] VITALS: BP 109/74; PULSE 73; RESP 18; TEMP 97.5; O2SAT 100
[2024-05-11 21:21] VITALS: BP 95/57; PULSE 95; RESP 18; TEMP 96.4; O2SAT 98
[2024-05-12 10:36] VITALS: BP 118/72; PULSE 61; RESP 19; TEMP 97.4; O2SAT 97
[2024-05-12] MEDS: LORazepam 2 MG TABLET PO PRN (14:42)
[2024-05-12] MEDS: HALOPERIDOL 5 MG TABLET PO PRN (14:42)
[2024-05-12 22:10] VITALS: BP 102/61; PULSE 95; RESP 17; TEMP 97.3; O2SAT 95
[2024-05-13 08:41] VITALS: BP 132/86; PULSE 100; RESP 18; TEMP 98.9; O2SAT 95
[2024-05-13] MEDS: NICOTINE 14 MG/24 HOUR PATCH TD PRN (17:56)
[2024-05-13 21:30] VITALS: RESP 18
[2024-05-14 11:28] VITALS: BP 136/83; PULSE 79; RESP 18; TEMP 98.9; O2SAT 98
[2024-05-15 08:14] VITALS: BP 139/88; PULSE 80; RESP 16; TEMP 98.4; O2SAT 96
[2024-05-15] MEDS: LORazepam 1 MG TABLET PO PRN (09:48)
[2024-05-15 20:19] VITALS: RESP 18; TEMP 97.8
[2024-05-16 09:21] VITALS: BP 123/84; PULSE 93; RESP 17; TEMP 97.1; O2SAT 97
[2024-05-16 22:26] VITALS: BP 86/53; PULSE 69; RESP 18; TEMP 97.8; O2SAT 95
[2024-05-17 09:11] VITALS: BP 111/68; PULSE 94; RESP 18; TEMP 97.5; O2SAT 96
[2024-05-17] MEDS: NICOTINE POLACRILEX 2 MG LOZENGE PO PRN (10:23)
[2024-05-17 20:35] VITALS: RESP 17; TEMP 97.6
[2024-05-18 10:46] VITALS: BP 101/59; PULSE 71; RESP 18; TEMP 97.8; O2SAT 97
[2024-05-18 21:59] VITALS: RESP 18
[2024-05-19 10:18] VITALS: BP 104/66; PULSE 60; RESP 17; TEMP 97.8; O2SAT 97
[2024-05-19] MEDS ORDERED: ARIP882S2 IM (17:12)
[2024-05-19 22:32] VITALS: BP 111/68; PULSE 80; RESP 18; TEMP 97.7; O2SAT 99
[2024-05-20 12:25] VITALS: BP 135/80; PULSE 82; RESP 18; TEMP 97.9; O2SAT 82
== END 2024-05-20 18:33 | disposition home or self-care (01) | DRG 750 ==
LOC: EMS 09:04 → 3EI 17:19 → 3EC 05-12 14:34 → 3EI 05-19 16:33
PROVIDERS: ADMIT Psychiatry & Neurology Child & Adolescent Psychiatry; ATTEND Psychiatry & Neurology Psychiatry
PROC: GZHZZZZ Group Psychotherapy (ICD-10-PCS; principal; 2024-05-03)
PROC: GZ51ZZZ Individual Psychotherapy, Behavioral (ICD-10-PCS; 2024-05-03)
DX: F25.1 Schizoaffective disorder, depressive type (principal); I95.9 Hypotension, unspecified; E44.0 Moderate protein-calorie malnutrition; R45.851 Suicidal ideations; D72.819 Decreased white blood cell count, unspecified; Z20.822 Contact with and (suspected) exposure to COVID-19; F12.10 Cannabis abuse, uncomplicated; F41.9 Anxiety disorder, unspecified; Z91.148 Patient's other noncompliance with medication regimen for other reason; Z79.899 Other long term (current) drug therapy; Z87.891 Personal history of nicotine dependence; Z68.1 Body mass index [BMI] 19.9 or less, adult
CPT/HCPCS: 80048; 80053; 80061; 80307; 81003; 83036; 83735; 84100; 84443; 85025; 99285; G0480

== ENCOUNTER 2024-05-21 20:06 | Emergency (ER) | payer MEDICAID ==
[~2024-05-21] VITALS: Ht 170.2 cm; Wt 54.5 kg
[~2024-05-21 20:06] MED LIST changes: +ARIP882S2 IM
[2024-05-21 20:13] VITALS: BP 138/80; PULSE 88; RESP 18; TEMP 98; O2SAT 98
[2024-05-21 20:37] LABS: BASOPHILS % (AUTO) 0.5 % (0.0-2.0); EOSINOPHILS % (AUTO) 0.5 % (1.0-6.0); HEMATOCRIT 50.2 % (41-53); HEMOGLOBIN 16.5 g/dL (13.5-17.5); LYMPHOCYTES # (AUTO) 1.6 K/uL (1.0-4.8); LYMPHOCYTES % (AUTO) 22.2 % (22.0-44.0); MEAN CORPUSCULAR HEMOGLOBIN 31.7 pg (26.0-34.0); MEAN CORPUSCULAR HGB CONC 32.8 G/dL (31.0-37.0); MEAN CORPUSCULAR VOLUME 97 fL (80-100); MONOCYTES # (AUTO) 0.4 K/uL (0.1-1.0); MONOCYTES % (AUTO) 5.6 % (2.0-9.0); NEUTROPHILS # (AUTO) 5.1 K/uL (1.8-7.7); NEUTROPHILS % (AUTO) 71.2 % (40.0-70.0); PLATELET COUNT (AUTO) 172 K/uL (150-450); RED CELL DISTRIBUTION WIDTH 13.5 % (11.5-14.5); WHITE BLOOD COUNT (AUTO) 7.1 K/uL (4.5-11.0)
[2024-05-21 20:41] LABS: COVID AG,FIA SOURCE NASAL SWAB
[2024-05-21 20:45] LABS: ANION GAP 12 mmol/L (8-16); CARBON DIOXIDE 30 mmol/L (22-29); CHLORIDE 103 mmol/L (98-107); CREATININE 0.84 mg/dL (0.60-1.30); GLOMERULAR FILTR. RATE CALC > 60 mL/min (>60); GLUCOSE,RANDOM 96 mg/dL (70-110); POTASSIUM 3.7 mmol/L (3.5-5.1); SODIUM SERUM 145 mmol/L (136-145); UREA NITROGEN, BLOOD 12 mg/dL (7-18)
[2024-05-21 20:45] LABS: APPEARANCE,URINE CLEAR (CLEAR); BILIRUBIN,URINE NEGATIVE (NEGATIVE); COLOR,URINE LIGHT YELLOW (YELLOW); GLUCOSE, URINE (UA) NEGATIVE (NEGATIVE); KETONES,URINE NEGATIVE (NEGATIVE); LEUKOCYTE ESTERASE ,URINE NEGATIVE (NEGATIVE); NITRATE,URINE NEGATIVE (NEGATIVE); OCCULT BLOOD,URINE NEGATIVE (NEGATIVE); PROTEIN,URINE NEGATIVE (NEGATIVE); SPECIFIC GRAVITIY, URINE 1.027 (1.003-1.030)
[2024-05-21 20:58] LABS: SARS-COV2 (COVID) ANTIGEN,FIA Negative (Negative)
[2024-05-21 21:02] LABS: ALCOHOL, BLOOD (SERUM) < 3 mg/dL (0-10)
[2024-05-21 21:17] LABS: ALCOHOL, URINE DRUG SCREEN NEGATIVE (NEGATIVE); AMPHET/METH SCREEN,URINE NEGATIVE (NEGATIVE); BARBITURATE SCREEN, URINE NEGATIVE (NEGATIVE); BENZODIAZEPINES SCREEN,URINE NEGATIVE (NEGATIVE); CANNABINOID SCREEN,URINE NEGATIVE (NEGATIVE); COCAINE SCREEN,URINE NEGATIVE (NEGATIVE); METHADONE SCREEN, URINE NEGATIVE (NEGATIVE); OPIATE SCREEN,URINE NEGATIVE (NEGATIVE); PHENCYCLIDINE SCREEN,URINE NEGATIVE (NEGATIVE)
[2024-05-21] MEDS: ARIPiprazole 15 MG TABLET PO ONE (21:17)
[2024-05-21] MEDS: LORazepam 1 MG TABLET PO ONE (21:17)
[2024-05-21] MEDS: ESCITALOPRAM OXALATE 10 MG TABLET PO ONE (21:17)
== END 2024-05-21 22:52 | disposition home or self-care (01) ==
LOC: EMS 20:06
DX: F20.9 Schizophrenia, unspecified (principal); F12.90 Cannabis use, unspecified, uncomplicated; F17.210 Nicotine dependence, cigarettes, uncomplicated; Z79.899 Other long term (current) drug therapy; Z20.822 Contact with and (suspected) exposure to COVID-19
CPT/HCPCS: 99284; 87426; 80048; 85025; 36415; 80307; 81003; G0480

== ENCOUNTER 2024-05-22 21:14 | Emergency (ER) | payer MEDICAID ==
[~2024-05-22] VITALS: Ht 170.2 cm; Wt 54.5 kg
[~2024-05-22 21:14] MED LIST changes: -ARIP15TA27 PO
[2024-05-22 21:27] VITALS: BP 122/76; PULSE 96; RESP 18; TEMP 98.5; O2SAT 96
== END 2024-05-22 22:55 | disposition left against medical advice (07) ==
LOC: EMS 21:22
DX: Z53.21 Procedure and treatment not carried out due to patient leaving prior to being seen by health care provider (principal)
CPT/HCPCS: 99284; Z7502

== ENCOUNTER 2024-05-22 23:45 | Inpatient (IN) | payer MEDICAID ==
[~2024-05-22] VITALS: Ht 170.2 cm; Wt 51.7 kg
[2024-05-22 23:50] VITALS: O2SAT 100
[2024-05-23 00:26] LABS: BASOPHILS % (AUTO) 0.6 % (0.0-2.0); EOSINOPHILS % (AUTO) 1.1 % (1.0-6.0); HEMATOCRIT 50.5 % (41-53); LYMPHOCYTES # (AUTO) 1.3 K/uL (1.0-4.8); LYMPHOCYTES % (AUTO) 19.2 % (22.0-44.0); MEAN CORPUSCULAR HEMOGLOBIN 32.1 pg (26.0-34.0); MEAN CORPUSCULAR HGB CONC 33.7 G/dL (31.0-37.0); MEAN CORPUSCULAR VOLUME 95 fL (80-100); MONOCYTES # (AUTO) 0.5 K/uL (0.1-1.0); MONOCYTES % (AUTO) 6.7 % (2.0-9.0); NEUTROPHILS # (AUTO) 5.1 K/uL (1.8-7.7); NEUTROPHILS % (AUTO) 72.4 % (40.0-70.0); PLATELET COUNT (AUTO) 173 K/uL (150-450); RED BLOOD CELL COUNT(AUTO) 5.31 MIL/uL (4.50-5.90); RED CELL DISTRIBUTION WIDTH 13.5 % (11.5-14.5)
[2024-05-23 00:28] LABS: ANION GAP 9 mmol/L (8-16); CARBON DIOXIDE 28 mmol/L (22-29); CHLORIDE 106 mmol/L (98-107); CREATININE 0.72 mg/dL (0.60-1.30); GLOMERULAR FILTR. RATE CALC > 60 mL/min (>60); GLUCOSE,RANDOM 121 mg/dL (70-110); POTASSIUM 3.7 mmol/L (3.5-5.1); SODIUM SERUM 143 mmol/L (136-145); UREA NITROGEN, BLOOD 12 mg/dL (7-18)
[2024-05-23 00:37] LABS: ALCOHOL, BLOOD (SERUM) < 3 mg/dL (0-10)
[2024-05-23] MEDS: DiphenhydrAMINE HCL 25 MG CAPSULE PO ONE (00:39)
[2024-05-23] MEDS: HALOPERIDOL 5 MG TABLET PO ONE (00:39)
[2024-05-23] MEDS: LORazepam 2 MG TABLET PO ONE (00:39)
[2024-05-23 01:57] LABS: APPEARANCE,URINE CLEAR (CLEAR); BILIRUBIN,URINE NEGATIVE (NEGATIVE); COLOR,URINE YELLOW (YELLOW); GLUCOSE, URINE (UA) NEGATIVE (NEGATIVE); KETONES,URINE NEGATIVE (NEGATIVE); LEUKOCYTE ESTERASE ,URINE NEGATIVE (NEGATIVE); NITRATE,URINE NEGATIVE (NEGATIVE); OCCULT BLOOD,URINE NEGATIVE (NEGATIVE); PROTEIN,URINE TRACE mg/dL (NEGATIVE)
[2024-05-23 02:05] LABS: ALCOHOL, URINE DRUG SCREEN NEGATIVE (NEGATIVE); AMPHET/METH SCREEN,URINE NEGATIVE (NEGATIVE); BARBITURATE SCREEN, URINE NEGATIVE (NEGATIVE); BENZODIAZEPINES SCREEN,URINE NEGATIVE (NEGATIVE); CANNABINOID SCREEN,URINE NEGATIVE (NEGATIVE); COCAINE SCREEN,URINE NEGATIVE (NEGATIVE); METHADONE SCREEN, URINE NEGATIVE (NEGATIVE); OPIATE SCREEN,URINE NEGATIVE (NEGATIVE); PHENCYCLIDINE SCREEN,URINE NEGATIVE (NEGATIVE)
[2024-05-23 03:30] VITALS: BP 133/85; PULSE 98; RESP 16; TEMP 98.6; O2SAT 99
[2024-05-23] MEDS ORDERED: INFLUENZA VIRUS VACCINE TVS (6MO+) 2024-25/PF 45 MCG/0.5 ML SYRINGE IM. ONE (06:00)
[2024-05-23] MEDS ORDERED: ONDANSETRON 4 MG TABLET PO PRN (06:30)
[2024-05-23] MEDS ORDERED: LOPERAMIDE HCL 2 MG CAPSULE PO PRN (06:30)
[2024-05-23] MEDS ORDERED: NICOTINE 14 MG/24 HOUR PATCH TD PRN (06:30)
[2024-05-23] MEDS ORDERED: MAGNESIUM HYDROXIDE SUSPENSION 30 ML UDCUP PO PRN (06:30)
[2024-05-23] MEDS ORDERED: MAG HYDROX/ALUMINUM HYD/SIMETH ES 30 ML SUSPENSION UDCUP PO PRN (06:30)
[2024-05-23] MEDS ORDERED: ACETAMINOPHEN 325 MG TABLET PO PRN (06:30)
[2024-05-23] MEDS ORDERED: PETROLATUM,WHITE 28 GM JELLY TP PRN (06:30)
[2024-05-23] MEDS ORDERED: ALBUTEROL SULFATE HFA 90 MCG/PUFF 8 GM INHALER IH PRN (06:30)
[2024-05-23] MEDS ORDERED: DOCUSATE SODIUM 100 MG CAPSULE PO PRN (06:30)
[2024-05-23] MEDS ORDERED: GuaiFENesin/D-METHORPHAN [SUGAR-FREE] 200-20MG/10 ML SYRUP UDCUP PO PRN (06:30)
[2024-05-23 08:10] VITALS: BP 104/71; PULSE 90; RESP 18; TEMP 99; O2SAT 95
[2024-05-23] MEDS: NICOTINE 14 MG/24 HOUR PATCH TD PRN (09:00)
[2024-05-23 09:02] LABS: BASOPHILS % (AUTO) 0.8 % (0.0-2.0); EOSINOPHILS % (AUTO) 1.9 % (1.0-6.0); HEMATOCRIT 46.6 % (41-53); HEMOGLOBIN 15.5 g/dL (13.5-17.5); LYMPHOCYTES # (AUTO) 1.7 K/uL (1.0-4.8); LYMPHOCYTES % (AUTO) 26.9 % (22.0-44.0); MEAN CORPUSCULAR HEMOGLOBIN 32.1 pg (26.0-34.0); MEAN CORPUSCULAR HGB CONC 33.4 G/dL (31.0-37.0); MEAN CORPUSCULAR VOLUME 96 fL (80-100); MONOCYTES # (AUTO) 0.4 K/uL (0.1-1.0); MONOCYTES % (AUTO) 6.9 % (2.0-9.0); NEUTROPHILS # (AUTO) 4.1 K/uL (1.8-7.7); NEUTROPHILS % (AUTO) 63.5 % (40.0-70.0); PLATELET COUNT (AUTO) 161 K/uL (150-450); RED BLOOD CELL COUNT(AUTO) 4.84 MIL/uL (4.50-5.90); RED CELL DISTRIBUTION WIDTH 13.5 % (11.5-14.5); WHITE BLOOD COUNT (AUTO) 6.4 K/uL (4.5-11.0)
[2024-05-23] MEDS: ESCITALOPRAM OXALATE 10 MG TABLET PO SCH (09:07)
[2024-05-23 09:19] LABS: ALANINE AMINOTRANSFERASE 25 U/L (12-78); ALBUMIN 3.8 g/dL (3.4-5.0); ALKALINE PHOSPHATASE 61 U/L (46-116); ASPARTATE AMINOTRANSFERASE 20 U/L (15-37); BILIRUBIN,TOTAL 0.9 mg/dL (0.1-1.0); CALCIUM, TOTAL 8.8 mg/dL (8.8-10.5); CARBON DIOXIDE 30 mmol/L (22-29); CHOL/HDL RATIO 2.6 (4.2-7.3); CHOLESTEROL 151 mg/dL (131-200); CREATININE 0.77 mg/dL (0.60-1.30); FREE T4 (FREE THYROXINE) 1.24 ng/dL (0.76-1.46); GLOMERULAR FILTR. RATE CALC > 60 mL/min (>60); GLUCOSE,RANDOM 77 mg/dL (70-110); HDL CHOLESTEROL 57 mg/dL (40-60); LDL CHOL (CALC.) 89 mg/dL (0-130); THYROID STIMULATING HORMONE 2.13 uIU/mL (0.36-3.74); TOTAL PROTEIN, SERUM 6.8 g/dL (6.4-8.2); TRIGLYCERIDES 23 mg/dL (15-150); UREA NITROGEN, BLOOD 10 mg/dL (7-18)
[2024-05-23 09:36] LABS: ANION GAP 7 mmol/L (8-16); CHLORIDE 106 mmol/L (98-107); HEMOGLOBIN A1C 4.8 % (3.8-5.6); POTASSIUM 3.7 mmol/L (3.5-5.1); SODIUM SERUM 143 mmol/L (136-145)
[2024-05-23] MEDS: LORazepam 2 MG TABLET PO PRN (13:26)
[2024-05-23 20:04] VITALS: BP 121/68; PULSE 96; RESP 16; TEMP 98.3; O2SAT 96
[2024-05-24] VITALS (9 sets, daily range): BP systolic 97–131; BP diastolic 54–94; PULSE 90–100; RESP 14–18; TEMP 97.2–98.8; O2SAT 95–98
[2024-05-24 09:29] LABS: PH,URINE DRUG SCREEN 5.5 (5.0-8.0)
[2024-05-24] MEDS: NICOTINE 21 MG/24 HOUR PATCH TD SCH (09:33)
[2024-05-24 09:39] LABS: ALCOHOL, URINE DRUG SCREEN NEGATIVE (NEGATIVE); AMPHET/METH SCREEN,URINE NEGATIVE (NEGATIVE); BARBITURATE SCREEN, URINE NEGATIVE (NEGATIVE); BENZODIAZEPINES SCREEN,URINE NEGATIVE (NEGATIVE); CANNABINOID SCREEN,URINE NEGATIVE (NEGATIVE); COCAINE SCREEN,URINE NEGATIVE (NEGATIVE); METHADONE SCREEN, URINE NEGATIVE (NEGATIVE); OPIATE SCREEN,URINE NEGATIVE (NEGATIVE); PHENCYCLIDINE SCREEN,URINE NEGATIVE (NEGATIVE)
[2024-05-24] MEDS ORDERED: ChlordiazePOXIDE HCL 25 MG CAPSULE PO PRN (11:30)
[2024-05-25] MEDS ORDERED: ChlordiazePOXIDE HCL 25 MG CAPSULE PO PRN (07:00)
[2024-05-25 08:43] VITALS: BP 124/78; PULSE 92; RESP 17; TEMP 97.2; O2SAT 96
[2024-05-25] MEDS: ChlordiazePOXIDE HCL 25 MG CAPSULE PO SCH (08:45)
[2024-05-25 09:14] LABS: HEMOGLOBIN A1C 4.8 % (3.8-5.6)
[2024-05-25 09:25] LABS: ALANINE AMINOTRANSFERASE 42 U/L (12-78); ALBUMIN 3.9 g/dL (3.4-5.0); ALKALINE PHOSPHATASE 62 U/L (46-116); ANION GAP 7 mmol/L (8-16); ASPARTATE AMINOTRANSFERASE 22 U/L (15-37); BILIRUBIN,TOTAL 0.6 mg/dL (0.1-1.0); CALCIUM, TOTAL 8.9 mg/dL (8.8-10.5); CARBON DIOXIDE 31 mmol/L (22-29); CHLORIDE 103 mmol/L (98-107); CHOL/HDL RATIO 2.9 (4.2-7.3); CHOLESTEROL 148 mg/dL (131-200); CREATININE 0.71 mg/dL (0.60-1.30); GLOMERULAR FILTR. RATE CALC > 60 mL/min (>60); GLUCOSE,RANDOM 108 mg/dL (70-110); HDL CHOLESTEROL 51 mg/dL (40-60); LDL CHOL (CALC.) 81 mg/dL (0-130); POTASSIUM 3.6 mmol/L (3.5-5.1); SODIUM SERUM 141 mmol/L (136-145); THYROID STIMULATING HORMONE 0.99 uIU/mL (0.36-3.74); TOTAL PROTEIN, SERUM 7.1 g/dL (6.4-8.2); TRIGLYCERIDES 79 mg/dL (15-150); UREA NITROGEN, BLOOD 11 mg/dL (7-18)
[2024-05-25 11:21] VITALS: BP 122/79; PULSE 92; RESP 18; TEMP 97.6; O2SAT 96
[2024-05-25 15:00] VITALS: BP 122/79; PULSE 92; RESP 18; TEMP 97.6; O2SAT 96
[2024-05-25 20:10] VITALS: BP 141/90; PULSE 112; RESP 19; TEMP 97.1; O2SAT 96
[2024-05-26 08:00] VITALS: BP 112/69; PULSE 96; RESP 18; TEMP 96.5; O2SAT 98
[2024-05-26 09:00] VITALS: BP 112/69; PULSE 96; RESP 18; TEMP 96.5; O2SAT 98
[2024-05-26 17:24] VITALS: BP 108/68
[2024-05-26 17:40] VITALS: BP 114/70; PULSE 90; RESP 18; TEMP 98.2; O2SAT 97
[2024-05-26 20:51] VITALS: BP 145/93; PULSE 91; RESP 16; TEMP 97.9; O2SAT 95
[2024-05-27] MEDS ORDERED: ChlordiazePOXIDE HCL 10 MG CAPSULE PO PRN (07:00)
[2024-05-27 08:24] VITALS: BP 115/71; PULSE 100; RESP 17; TEMP 97.3; O2SAT 100
[2024-05-27] MEDS: ChlordiazePOXIDE HCL 10 MG CAPSULE PO SCH (08:25)
[2024-05-27 11:30] VITALS: BP 115/71; PULSE 100; RESP 17; TEMP 97.3; O2SAT 100
[2024-05-27 20:00] VITALS: BP 133/76; PULSE 101; RESP 18; TEMP 98.6; O2SAT 97
[2024-05-27 20:03] VITALS: RESP 18
[2024-05-27] MEDS: IBUPROFEN 400 MG TABLET PO PRN (20:03)
[2024-05-27] MEDS ORDERED: HALOPERIDOL LACTATE 5 MG/ML VIAL ONE (20:29)
[2024-05-27] MEDS ORDERED: HALOPERIDOL DECANOATE 50 MG/ML VIAL IM ONE (20:30)
[2024-05-27] MEDS: DiphenhydrAMINE HCL 50 MG/ML VIAL IM ONE (21:01)
[2024-05-27] MEDS: HALOPERIDOL LACTATE 5 MG/ML VIAL IM ONE (21:02)
[2024-05-27] MEDS: LORazepam 2 MG/ML VIAL IM ONE (21:02)
[2024-05-27 21:03] VITALS: RESP 18
[2024-05-28] MEDS ORDERED: ChlordiazePOXIDE HCL 10 MG CAPSULE PO PRN (07:00)
[2024-05-28] MEDS: HALOPERIDOL 5 MG TABLET PO PRN (08:43)
[2024-05-28 09:21] VITALS: BP 130/72; PULSE 98; RESP 18; TEMP 97.6
[2024-05-28 17:24] VITALS: BP 135/76; PULSE 100; RESP 16; TEMP 97.2; O2SAT 98
[2024-05-28 20:16] VITALS: BP 135/76; PULSE 100; RESP 16; TEMP 97.2; O2SAT 98
[2024-05-28] MEDS: ZOLPIDEM TARTRATE 10 MG TABLET PO PRN (21:10)
[2024-05-29 10:10] VITALS: BP 106/71; PULSE 97; RESP 18; TEMP 97.8; O2SAT 97
[2024-05-29 11:25] VITALS: BP 125/78; PULSE 97; RESP 18; TEMP 97.5; O2SAT 98
[2024-05-29] MEDS: PERMETHRIN 1% 60 ML LOTION TP ONE (18:00)
[2024-05-29 20:48] VITALS: BP 112/61; PULSE 91; RESP 18; TEMP 98.3; O2SAT 100
[2024-05-30 08:14] VITALS: BP 134/89; PULSE 100; RESP 15; TEMP 97.2; O2SAT 97
[2024-06-03] MEDS ORDERED: ARIPiprazole LAUROXIL ER SUSPENSION 882 MG/3.2 ML SYRINGE IM SCH (09:00)
== END 2024-05-30 13:11 | disposition left against medical advice (07) | DRG 750 ==
LOC: EMS 23:45 → EDH 05-23 00:24 → UNDOADMIN 05-23 00:24 → B2S 05-23 01:54 → B3A 05-27 20:08
PROVIDERS: ADMIT Psychiatry & Neurology Psychiatry; ATTEND Psychiatry & Neurology Psychiatry
PROC: GZHZZZZ Group Psychotherapy (ICD-10-PCS; principal; 2024-05-23)
PROC: GZ51ZZZ Individual Psychotherapy, Behavioral (ICD-10-PCS; 2024-05-23)
DX: F25.1 Schizoaffective disorder, depressive type (principal); R45.851 Suicidal ideations; F10.10 Alcohol abuse, uncomplicated; F41.9 Anxiety disorder, unspecified; F12.10 Cannabis abuse, uncomplicated; R73.9 Hyperglycemia, unspecified; F31.9 Bipolar disorder, unspecified; Z87.891 Personal history of nicotine dependence; G47.00 Insomnia, unspecified; Z79.899 Other long term (current) drug therapy
CPT/HCPCS: 80048; 80053; 80061; 80307; 81003; 83036; 84439; 84443; 85025; 87081; 99285; G0480; J1200; J1630; J2060

== ENCOUNTER 2024-06-02 10:21 | Inpatient (IN) | payer MEDICAID ==
[~2024-06-02] VITALS: Ht 170.2 cm; Wt 52.8 kg
[2024-06-02 10:44] LABS: BASOPHILS % (AUTO) 0.5 % (0.0-2.0); EOSINOPHILS % (AUTO) 0.8 % (1.0-6.0); HEMATOCRIT 52.1 % (41-53); HEMOGLOBIN 17.5 g/dL (13.5-17.5); LYMPHOCYTES # (AUTO) 1.3 K/uL (1.0-4.8); LYMPHOCYTES % (AUTO) 25.2 % (22.0-44.0); MEAN CORPUSCULAR HEMOGLOBIN 32.1 pg (26.0-34.0); MEAN CORPUSCULAR HGB CONC 33.5 G/dL (31.0-37.0); MEAN CORPUSCULAR VOLUME 96 fL (80-100); MONOCYTES # (AUTO) 0.3 K/uL (0.1-1.0); MONOCYTES % (AUTO) 6.2 % (2.0-9.0); NEUTROPHILS # (AUTO) 3.5 K/uL (1.8-7.7); NEUTROPHILS % (AUTO) 67.3 % (40.0-70.0); PLATELET COUNT (AUTO) 204 K/uL (150-450); RED BLOOD CELL COUNT(AUTO) 5.45 MIL/uL (4.50-5.90); RED CELL DISTRIBUTION WIDTH 13.8 % (11.5-14.5); WHITE BLOOD COUNT (AUTO) 5.2 K/uL (4.5-11.0)
[2024-06-02 10:47] LABS: ANION GAP 10 mmol/L (8-16); CALCIUM, TOTAL 9.4 mg/dL (8.8-10.5); CARBON DIOXIDE 27 mmol/L (22-29); CHLORIDE 102 mmol/L (98-107); CREATININE 0.85 mg/dL (0.60-1.30); GLOMERULAR FILTR. RATE CALC > 60 mL/min (>60); GLUCOSE,RANDOM 132 mg/dL (70-110); POTASSIUM 3.6 mmol/L (3.5-5.1); SODIUM SERUM 139 mmol/L (136-145); UREA NITROGEN, BLOOD 6 mg/dL (7-18)
[2024-06-02 11:00] LABS: ALCOHOL, BLOOD (SERUM) < 3 mg/dL (0-10)
[2024-06-02] MEDS ORDERED: ZOLPIDEM TARTRATE 10 MG TABLET PO PRN (11:45)
[2024-06-02 12:38] LABS: COVID AG,FIA SOURCE NASAL SWAB
[2024-06-02 13:16] LABS: SARS-COV2 (COVID) ANTIGEN,FIA Negative (Negative)
[2024-06-02] MEDS: LORazepam 1 MG TABLET PO ONE (13:29)
[2024-06-02] MEDS: HALOPERIDOL 5 MG TABLET PO PRN (14:04)
[2024-06-03 10:21] VITALS: BP 121/81; PULSE 94; RESP 18; TEMP 98; O2SAT 98
[2024-06-03 10:34] VITALS: BP 121/81; PULSE 94; RESP 18; TEMP 97.6; O2SAT 98
[2024-06-03] MEDS ORDERED: INFLUENZA VIRUS VACCINE TVS (6MO+) 2024-25/PF 45 MCG/0.5 ML SYRINGE IM. ONE (13:15)
[2024-06-03 21:39] VITALS: RESP 18
[2024-06-03 21:42] VITALS: RESP 18; O2SAT 0
[2024-06-04] MEDS ORDERED: LOPERAMIDE HCL 2 MG CAPSULE PO PRN (07:00)
[2024-06-04] MEDS ORDERED: NICOTINE 14 MG/24 HOUR PATCH TD PRN (07:00)
[2024-06-04] MEDS ORDERED: MAG HYDROX/ALUMINUM HYD/SIMETH ES 30 ML SUSPENSION UDCUP PO PRN (07:00)
[2024-06-04] MEDS ORDERED: ACETAMINOPHEN 325 MG TABLET PO PRN (07:00)
[2024-06-04] MEDS ORDERED: ALBUTEROL SULFATE HFA 90 MCG/PUFF 8 GM INHALER IH PRN (07:00)
[2024-06-04] MEDS ORDERED: ONDANSETRON 4 MG TABLET PO PRN (07:00)
[2024-06-04] MEDS ORDERED: PETROLATUM,WHITE 28 GM JELLY TP PRN (07:00)
[2024-06-04] MEDS ORDERED: GuaiFENesin/D-METHORPHAN [SUGAR-FREE] 200-20MG/10 ML SYRUP UDCUP PO PRN (07:00)
[2024-06-04] MEDS ORDERED: CloNIDine HCL 0.1 MG TABLET PO PRN (07:00)
[2024-06-04] MEDS ORDERED: IBUPROFEN 400 MG TABLET PO PRN (07:00)
[2024-06-04] MEDS ORDERED: MAGNESIUM HYDROXIDE SUSPENSION 30 ML UDCUP PO PRN (07:00)
[2024-06-04] MEDS ORDERED: DOCUSATE SODIUM 100 MG CAPSULE PO PRN (07:00)
[2024-06-04 11:12] VITALS: BP 96/60; PULSE 96; RESP 17; TEMP 97.9; O2SAT 99
[2024-06-04 11:26] VITALS: BP 100/61; PULSE 96; RESP 17; TEMP 97.9; O2SAT 0
[2024-06-04] MEDS ORDERED: ESCI-8 PO (15:23)
[2024-06-04] MEDS ORDERED: ARIP882S2 IM (15:23)
[2024-06-04] MEDS: ARIPiprazole LAUROXIL ER SUSPENSION 882 MG/3.2 ML SYRINGE IM SCH (17:21)
[2024-06-04] MEDS: ESCITALOPRAM OXALATE 10 MG TABLET PO SCH (17:22)
[2024-06-04 22:27] VITALS: BP 107/66; PULSE 77; RESP 18; TEMP 97.7; O2SAT 97
[2024-06-04 22:34] VITALS: BP 107/66; PULSE 77; RESP 18; TEMP 97.7; O2SAT 97
[2024-06-05 09:25] LABS: HEMOGLOBIN A1C 4.8 % (3.8-5.6)
[2024-06-05 09:48] LABS: CHOL/HDL RATIO 3.1 (4.2-7.3); THYROID STIMULATING HORMONE 0.84 uIU/mL (0.36-3.74)
[2024-06-05 12:33] VITALS: BP 134/68; PULSE 90; RESP 18; TEMP 97.9; O2SAT 97
[2024-06-05 21:18] VITALS: BP 99/57; PULSE 91; RESP 18; TEMP 98.1; O2SAT 96
[2024-06-06 11:02] VITALS: BP 109/69; PULSE 73; RESP 18; TEMP 98.6; O2SAT 97
[2024-06-06] MEDS ORDERED: ARIP882S2 IM (16:55)
[2024-06-06] MEDS ORDERED: ESCI-8 PO (16:55)
[2024-06-06 20:00] VITALS: BP 96/57; PULSE 68; RESP 19; TEMP 98; O2SAT 95
[2024-06-07 09:51] VITALS: BP 129/78; PULSE 81; RESP 18; TEMP 98.9; O2SAT 99
== END 2024-06-07 14:58 | disposition home or self-care (01) | DRG 750 ==
LOC: EMS 10:21 → UNDOADMIN 06-03 08:30 → 3EI 06-03 08:30 → UNDODISIN 06-07 14:58
PROVIDERS: ADMIT Psychiatry & Neurology Psychiatry; ATTEND Psychiatry & Neurology Psychiatry
PROC: GZHZZZZ Group Psychotherapy (ICD-10-PCS; principal; 2024-06-03)
PROC: GZ52ZZZ Individual Psychotherapy, Cognitive (ICD-10-PCS; 2024-06-03)
DX: F25.1 Schizoaffective disorder, depressive type (principal); R45.851 Suicidal ideations; F10.10 Alcohol abuse, uncomplicated; Z20.822 Contact with and (suspected) exposure to COVID-19; F17.210 Nicotine dependence, cigarettes, uncomplicated; G47.00 Insomnia, unspecified; F31.9 Bipolar disorder, unspecified; F12.10 Cannabis abuse, uncomplicated; F41.9 Anxiety disorder, unspecified; F90.9 Attention-deficit hyperactivity disorder, unspecified type; Y90.9 Presence of alcohol in blood, level not specified; Z79.899 Other long term (current) drug therapy
CPT/HCPCS: 80048; 80061; 83036; 84443; 85025; 99285; G0480

== ENCOUNTER 2024-10-05 11:39 | Emergency (ER) | payer MEDICAID ==
[~2024-10-05] VITALS: Ht 170.2 cm; Wt 54.5 kg
[2024-10-05 11:45] VITALS: TEMP 97.9
[2024-10-05 12:45] LABS: PLATELET COUNT (AUTO) 169 K/uL (150-450); RED BLOOD CELL COUNT(AUTO) 5.40 MIL/uL (4.50-5.90); RED CELL DISTRIBUTION WIDTH 13.5 % (11.5-14.5); WHITE BLOOD COUNT (AUTO) 4.7 K/uL (4.5-11.0)
[2024-10-05 12:53] LABS: CALCIUM, TOTAL 9.3 mg/dL (8.8-10.5); CREATININE 0.88 mg/dL (0.60-1.30); GLOMERULAR FILTR. RATE CALC > 60 mL/min (>60); GLUCOSE,RANDOM 99 mg/dL (70-110); SODIUM SERUM 143 mmol/L (136-145); UREA NITROGEN, BLOOD 7 mg/dL (7-18)
[2024-10-05 14:50] LABS: COVID AG,FIA SOURCE NASAL SWAB
[2024-10-05 16:25] LABS: SARS-COV2 (COVID) ANTIGEN,FIA Negative (Negative)
[2024-10-05 17:49] VITALS: BP 122/73; PULSE 81; RESP 18; O2SAT 96
== END 2024-10-05 17:53 | disposition home or self-care (01) ==
LOC: EMS 12:37
DX: F20.9 Schizophrenia, unspecified (principal); F32.A Depression, unspecified; F12.90 Cannabis use, unspecified, uncomplicated; F17.210 Nicotine dependence, cigarettes, uncomplicated; Z79.899 Other long term (current) drug therapy; Z20.822 Contact with and (suspected) exposure to COVID-19
CPT/HCPCS: 99283; 87426; 80048; 85025; 36415; G0480

== ENCOUNTER 2024-11-17 23:51 | Inpatient (IN) | payer MEDICAID ==
[~2024-11-17] VITALS: Ht 170.2 cm; Wt 52.6 kg
[~2024-11-17 23:51] MED LIST changes: +ARIP400S3 IM; -ARIP882S2 IM
[2024-11-18 01:23] VITALS: BP 116/79; PULSE 86; RESP 18; TEMP 98.2; O2SAT 96
[2024-11-18 02:00] LABS: GLUCOMETER DEV NAME(LOC) POC.BV; POC SARS-COV2 AG, FIA NEGATIVE (NEGATIVE)
[2024-11-18] MEDS ORDERED: ONDANSETRON 4 MG TABLET PO PRN (02:15)
[2024-11-18] MEDS ORDERED: MAGNESIUM HYDROXIDE SUSPENSION 30 ML UDCUP PO PRN (02:15)
[2024-11-18] MEDS ORDERED: BACITRACIN 28 GM OINTMENT TP PRN (02:15)
[2024-11-18] MEDS ORDERED: ALBUTEROL SULFATE HFA 90 MCG/PUFF 8 GM INHALER IH PRN (02:15)
[2024-11-18] MEDS ORDERED: DOCUSATE SODIUM 100 MG CAPSULE PO PRN (02:15)
[2024-11-18] MEDS ORDERED: IBUPROFEN 600 MG TABLET PO PRN (02:15)
[2024-11-18] MEDS ORDERED: MAG HYDROX/ALUMINUM HYD/SIMETH ES 30 ML SUSPENSION UDCUP PO PRN (02:15)
[2024-11-18] MEDS ORDERED: ACETAMINOPHEN 325 MG TABLET PO PRN (02:15)
[2024-11-18] MEDS ORDERED: LOPERAMIDE HCL 2 MG CAPSULE PO PRN (02:15)
[2024-11-18] MEDS ORDERED: OMEPRAZOLE 20 MG CAPSULE PO PRN (02:15)
[2024-11-18] MEDS ORDERED: BENZOCAINE/MENTHOL [CEPACOL] LOZENGE PO PRN (02:15)
[2024-11-18] MEDS ORDERED: PETROLATUM,WHITE 28 GM JELLY TP PRN (02:15)
[2024-11-18] MEDS: NICOTINE POLACRILEX 2 MG LOZENGE PO PRN (06:51)
[2024-11-18 08:43] VITALS: BP 117/84; PULSE 100; RESP 17; TEMP 97; O2SAT 100
[2024-11-18] MEDS: ARIPiprazole ER SUSPENSION 400 MG PRE-FILLED DUAL CHAMBER SYRINGE IM SCH (09:00)
[2024-11-18] MEDS: ESCITALOPRAM OXALATE 10 MG TABLET PO SCH (09:33)
[2024-11-18 20:33] VITALS: BP 109/83; PULSE 94; RESP 17; TEMP 97.2; O2SAT 96
[2024-11-19 08:16] VITALS: BP 110/66; PULSE 103; RESP 18; TEMP 97.4; O2SAT 97
[2024-11-19 08:28] LABS: PLATELET COUNT (AUTO) 185 K/uL (150-450); RED BLOOD CELL COUNT(AUTO) 5.15 MIL/uL (4.50-5.90); RED CELL DISTRIBUTION WIDTH 13.7 % (11.5-14.5); WHITE BLOOD COUNT (AUTO) 5.1 K/uL (4.5-11.0)
[2024-11-19 08:52] LABS: ASPARTATE AMINOTRANSFERASE 24 U/L (15-37); CALCIUM, TOTAL 8.9 mg/dL (8.8-10.5); CHOL/HDL RATIO 3.4 (4.2-7.3); CREATININE 0.92 mg/dL (0.60-1.30); GLOMERULAR FILTR. RATE CALC > 60 mL/min (>60); GLUCOSE,RANDOM 99 mg/dL (70-110); LDL CHOL (CALC.) 81 mg/dL (0-130); SODIUM SERUM 139 mmol/L (136-145); TOTAL PROTEIN, SERUM 7.0 g/dL (6.4-8.2); UREA NITROGEN, BLOOD 12 mg/dL (7-18)
[2024-11-19 20:20] VITALS: BP 116/82; PULSE 93; RESP 18; TEMP 97.6; O2SAT 96
[2024-11-20] MEDS: ZOLPIDEM TARTRATE 10 MG TABLET PO PRN (02:25)
[2024-11-20 08:36] VITALS: BP 118/90; PULSE 110; RESP 18; TEMP 97.9; O2SAT 98
[2024-11-20 20:09] VITALS: BP 137/94; PULSE 70; RESP 18; TEMP 97.6; O2SAT 97
[2024-11-21 08:30] VITALS: BP 115/80; PULSE 105; RESP 16; TEMP 97.3; O2SAT 97
[2024-11-21] MEDS ORDERED: TRAZ-252 PO (12:53)
== END 2024-11-21 17:45 | disposition home or self-care (01) | DRG 750 ==
LOC: B2S 11-18 00:48
PROVIDERS: ADMIT Psychiatry & Neurology Psychiatry; ATTEND Psychiatry & Neurology Psychiatry
DX: F20.9 Schizophrenia, unspecified (principal); F41.9 Anxiety disorder, unspecified; Z20.822 Contact with and (suspected) exposure to COVID-19; G47.00 Insomnia, unspecified; F90.9 Attention-deficit hyperactivity disorder, unspecified type; Z79.899 Other long term (current) drug therapy
CPT/HCPCS: 80053; 80061; 83036; 84436; 84443; 85025; 87081; J0401

== ENCOUNTER 2024-12-12 12:48 | Emergency (ER) | payer MEDICAID ==
[~2024-12-12] VITALS: Ht 170.2 cm; Wt 52.3 kg
[2024-12-12 12:59] VITALS: TEMP 98.4
[2024-12-12 14:20] LABS: COVID AG,FIA SOURCE NASAL SWAB
[2024-12-12 14:26] LABS: PLATELET COUNT (AUTO) 196 K/uL (150-450); RED BLOOD CELL COUNT(AUTO) 5.32 MIL/uL (4.50-5.90); RED CELL DISTRIBUTION WIDTH 13.6 % (11.5-14.5); WHITE BLOOD COUNT (AUTO) 4.8 K/uL (4.5-11.0)
[2024-12-12 14:28] LABS: APPEARANCE,URINE CLEAR (CLEAR); GLUCOSE, URINE (UA) NEGATIVE (NEGATIVE); LEUKOCYTE ESTERASE ,URINE NEGATIVE (NEGATIVE); NITRATE,URINE NEGATIVE (NEGATIVE); OCCULT BLOOD,URINE NEGATIVE (NEGATIVE); PH,URINE DRUG SCREEN 7.0 (5.0-8.0); SPECIFIC GRAVITIY, URINE 1.023 (1.003-1.030)
[2024-12-12 14:33] LABS: CALCIUM, TOTAL 9.3 mg/dL (8.8-10.5); CREATININE 0.58 mg/dL (0.60-1.30); GLOMERULAR FILTR. RATE CALC > 60 mL/min (>60); GLUCOSE,RANDOM 126 mg/dL (70-110); SODIUM SERUM 138 mmol/L (136-145); UREA NITROGEN, BLOOD 8 mg/dL (7-18)
[2024-12-12 14:34] LABS: ALCOHOL, URINE DRUG SCREEN NEGATIVE (NEGATIVE); AMPHET/METH SCREEN,URINE NEGATIVE (NEGATIVE); BARBITURATE SCREEN, URINE NEGATIVE (NEGATIVE); CANNABINOID SCREEN,URINE NEGATIVE (NEGATIVE); COCAINE SCREEN,URINE NEGATIVE (NEGATIVE); METHADONE SCREEN, URINE NEGATIVE (NEGATIVE)
[2024-12-12 14:51] LABS: SARS-COV2 (COVID) ANTIGEN,FIA Negative (Negative)
[2024-12-12] MEDS: NICOTINE POLACRILEX 2 MG LOZENGE PO ONE (15:10)
[2024-12-12 15:30] VITALS: BP 105/71; PULSE 97; RESP 18; O2SAT 96
== END 2024-12-12 16:06 | disposition home or self-care (01) ==
LOC: EMS 12:48
DX: F20.0 Paranoid schizophrenia (principal); F31.9 Bipolar disorder, unspecified; R45.851 Suicidal ideations; F12.90 Cannabis use, unspecified, uncomplicated; F17.210 Nicotine dependence, cigarettes, uncomplicated; Z20.822 Contact with and (suspected) exposure to COVID-19
CPT/HCPCS: 99284; 87426; 80048; 81003; 85025; 36415; 80307; G0480

== ENCOUNTER 2024-12-12 21:12 | Emergency (ER) | payer MEDICAID ==
[~2024-12-12] VITALS: Ht 170.2 cm; Wt 52.3 kg
[2024-12-12 21:33] VITALS: TEMP 98.2
[2024-12-13 00:55] VITALS: BP 127/80; PULSE 94; RESP 13; O2SAT 96
== END 2024-12-13 01:05 | disposition home or self-care (01) ==
LOC: EMS 21:40
DX: F20.9 Schizophrenia, unspecified (principal); R45.851 Suicidal ideations; F31.9 Bipolar disorder, unspecified; F12.90 Cannabis use, unspecified, uncomplicated
CPT/HCPCS: 99284; Z7502; Z7610

== ENCOUNTER 2024-12-23 23:24 | Emergency (ER) | payer MEDICAID ==
[~2024-12-23] VITALS: Ht 170.2 cm; Wt 52.3 kg
[2024-12-23 23:25] VITALS: BP 123/76; PULSE 79; RESP 18; TEMP 98; O2SAT 98
[2024-12-24 00:08] LABS: PLATELET COUNT (AUTO) 162 K/uL (150-450); RED BLOOD CELL COUNT(AUTO) 4.96 MIL/uL (4.50-5.90); RED CELL DISTRIBUTION WIDTH 13.9 % (11.5-14.5); WHITE BLOOD COUNT (AUTO) 4.4 K/uL (4.5-11.0)
[2024-12-24 00:17] LABS: APPEARANCE,URINE TURBID (CLEAR); GLUCOSE, URINE (UA) NEGATIVE (NEGATIVE); LEUKOCYTE ESTERASE ,URINE NEGATIVE (NEGATIVE); NITRATE,URINE NEGATIVE (NEGATIVE); OCCULT BLOOD,URINE NEGATIVE (NEGATIVE); PH,URINE DRUG SCREEN 7.5 (5.0-8.0); SPECIFIC GRAVITIY, URINE 1.023 (1.003-1.030)
[2024-12-24 00:19] LABS: CALCIUM, TOTAL 8.9 mg/dL (8.8-10.5); CREATININE 0.77 mg/dL (0.60-1.30); GLOMERULAR FILTR. RATE CALC > 60 mL/min (>60); GLUCOSE,RANDOM 101 mg/dL (70-110); SODIUM SERUM 141 mmol/L (136-145); UREA NITROGEN, BLOOD 9 mg/dL (7-18)
[2024-12-24 00:24] LABS: ALCOHOL, URINE DRUG SCREEN NEGATIVE (NEGATIVE); AMPHET/METH SCREEN,URINE NEGATIVE (NEGATIVE); BARBITURATE SCREEN, URINE NEGATIVE (NEGATIVE); CANNABINOID SCREEN,URINE NEGATIVE (NEGATIVE); COCAINE SCREEN,URINE NEGATIVE (NEGATIVE); METHADONE SCREEN, URINE NEGATIVE (NEGATIVE)
== END 2024-12-24 03:28 | disposition left against medical advice (07) ==
LOC: EMS 23:24
DX: R45.851 Suicidal ideations (principal); Z79.899 Other long term (current) drug therapy; Z53.21 Procedure and treatment not carried out due to patient leaving prior to being seen by health care provider
CPT/HCPCS: 80307; 36415; 80048; 85025; 81003; G0480; 99285

== ENCOUNTER 2024-12-24 08:15 | Inpatient (IN) | payer MEDICAID ==
[~2024-12-24] VITALS: Ht 167.6 cm; Wt 53.7 kg
[2024-12-24 11:35] VITALS: BP 104/79; PULSE 86; RESP 16; TEMP 98.4; O2SAT 99
[2024-12-24] MEDS: NICOTINE 21 MG/24 HOUR PATCH TD SCH (13:03)
[2024-12-24] MEDS ORDERED: ONDANSETRON 4 MG TABLET PO PRN (16:45)
[2024-12-24] MEDS ORDERED: IBUPROFEN 600 MG TABLET PO PRN (16:45)
[2024-12-24] MEDS ORDERED: ALBUTEROL SULFATE HFA 90 MCG/PUFF 8 GM INHALER IH PRN (16:45)
[2024-12-24] MEDS ORDERED: ACETAMINOPHEN 325 MG TABLET PO PRN (16:45)
[2024-12-24] MEDS ORDERED: MAG HYDROX/ALUMINUM HYD/SIMETH ES 30 ML SUSPENSION UDCUP PO PRN (16:45)
[2024-12-24] MEDS ORDERED: OMEPRAZOLE 20 MG CAPSULE PO PRN (16:45)
[2024-12-24] MEDS ORDERED: PETROLATUM,WHITE 28 GM JELLY TP PRN (16:45)
[2024-12-24] MEDS ORDERED: DOCUSATE SODIUM 100 MG CAPSULE PO PRN (16:45)
[2024-12-24] MEDS ORDERED: LOPERAMIDE HCL 2 MG CAPSULE PO PRN (16:45)
[2024-12-24] MEDS ORDERED: BENZOCAINE/MENTHOL [CEPACOL] LOZENGE PO PRN (16:45)
[2024-12-24] MEDS ORDERED: BACITRACIN 28 GM OINTMENT TP PRN (16:45)
[2024-12-24] MEDS ORDERED: MAGNESIUM HYDROXIDE SUSPENSION 30 ML UDCUP PO PRN (16:45)
[2024-12-24 20:27] VITALS: BP 98/67; PULSE 65; RESP 17; TEMP 97.9; O2SAT 98
[2024-12-24] MEDS: ZOLPIDEM TARTRATE 10 MG TABLET PO PRN (21:11)
[2024-12-25 08:22] VITALS: BP 114/76; PULSE 94; RESP 19; TEMP 97.5; O2SAT 99
[2024-12-25] MEDS: NICOTINE POLACRILEX 2 MG LOZENGE PO PRN (09:06)
[2024-12-25 20:22] VITALS: BP 109/78; PULSE 80; RESP 18; TEMP 97.5; O2SAT 98
[2024-12-26] MEDS: CITALOPRAM HYDROBROMIDE 20 MG TABLET PO SCH (08:32)
[2024-12-26 08:43] VITALS: BP 104/71; PULSE 79; RESP 16; TEMP 97.2; O2SAT 98
[2024-12-26 20:27] VITALS: BP 109/77; PULSE 80; RESP 18; TEMP 97.5; O2SAT 98
[2024-12-27 08:42] VITALS: BP 113/84; PULSE 100; RESP 18; TEMP 97.3; O2SAT 100
[2024-12-27] MEDS: NICOTINE POLACRILEX 4 MG LOZENGE PO PRN (09:55)
[2024-12-27 20:41] VITALS: BP 105/80; PULSE 95; RESP 17; TEMP 97.6; O2SAT 99
[2024-12-28 08:26] VITALS: BP 111/81; PULSE 84; RESP 19; TEMP 97.9; O2SAT 98
[2024-12-28 20:39] VITALS: BP 101/81; PULSE 76; RESP 17; TEMP 97.9; O2SAT 99
[2024-12-29 09:02] VITALS: BP 107/72; PULSE 70; RESP 17; TEMP 98.9; O2SAT 100
[2024-12-29 21:45] VITALS: BP 114/80; PULSE 96; RESP 18; TEMP 98; O2SAT 96
[2024-12-30 08:01] VITALS: BP 119/76; PULSE 82; RESP 16; TEMP 98.4; O2SAT 98
[2024-12-30 20:45] VITALS: BP 135/76; PULSE 100; RESP 19; TEMP 97.3; O2SAT 96
[2024-12-31 08:32] VITALS: BP 130/82; PULSE 100; RESP 18; TEMP 97.6; O2SAT 96
[2024-12-31 21:19] VITALS: BP 137/91; PULSE 100; RESP 18; TEMP 98; O2SAT 96
[2025-01-01 09:29] VITALS: BP 119/89; PULSE 71; RESP 17; TEMP 97; O2SAT 97
[2025-01-01 20:27] VITALS: BP 142/96; PULSE 73; RESP 18; TEMP 98.5; O2SAT 92
[2025-01-02 08:46] VITALS: BP 110/69; PULSE 91; RESP 16; TEMP 98.4; O2SAT 96
[2025-01-02 20:37] VITALS: BP 115/72; PULSE 82; RESP 17; TEMP 98.2; O2SAT 98
[2025-01-03 09:11] VITALS: BP 128/88; PULSE 93; RESP 16; TEMP 96.8; O2SAT 98
[2025-01-03] MEDS ORDERED: BACITRACIN 28 GM OINTMENT TP PRN (16:00)
[2025-01-03] MEDS: ZOLPIDEM TARTRATE 10 MG TABLET PO PRN (20:23)
[2025-01-03 20:25] VITALS: BP 103/75; PULSE 86; RESP 17; TEMP 98.1; O2SAT 93
[2025-01-04 08:26] VITALS: BP 109/70; PULSE 94; RESP 18; TEMP 97.5; O2SAT 97
[2025-01-04 20:27] VITALS: BP 121/84; PULSE 119; RESP 18; TEMP 99; O2SAT 97
[2025-01-05 09:07] VITALS: BP 116/60; PULSE 100; RESP 16; TEMP 97.1; O2SAT 95
[2025-01-05 20:30] VITALS: BP 116/80; PULSE 89; RESP 17; TEMP 97.8; O2SAT 98
[2025-01-06] MEDS ORDERED: CITA-144 PO (08:10)
[2025-01-06] MEDS ORDERED: OLAN10TA74 PO (08:11)
[2025-01-06 08:16] VITALS: BP 100/65; PULSE 94; RESP 17; TEMP 98.7; O2SAT 96
== END 2025-01-06 11:55 | disposition home or self-care (01) | DRG 751 ==
LOC: B2S 08:52
PROVIDERS: ADMIT Psychiatry & Neurology Psychiatry; ATTEND Psychiatry & Neurology Psychiatry
DX: F32.9 Major depressive disorder, single episode, unspecified (principal); R45.851 Suicidal ideations; F41.9 Anxiety disorder, unspecified; F90.9 Attention-deficit hyperactivity disorder, unspecified type; G47.00 Insomnia, unspecified; K59.00 Constipation, unspecified; Z60.8 Other problems related to social environment; R45.89 Other symptoms and signs involving emotional state; F12.90 Cannabis use, unspecified, uncomplicated; Z79.899 Other long term (current) drug therapy; Z68.1 Body mass index [BMI] 19.9 or less, adult
CPT/HCPCS: 87081; Z7610

== ENCOUNTER 2025-01-11 11:16 | Inpatient (IN) | payer MEDICAID ==
[~2025-01-11] VITALS: Ht 170.2 cm; Wt 53.5 kg
[~2025-01-11 11:16] MED LIST changes: -ARIP400S3 IM; +CITA-144 PO; -ESCI-8 PO; +OLAN10TA74 PO
[2025-01-11 11:44] LABS: PLATELET COUNT (AUTO) 213 K/uL (150-450); RED BLOOD CELL COUNT(AUTO) 5.09 MIL/uL (4.50-5.90); RED CELL DISTRIBUTION WIDTH 13.3 % (11.5-14.5); WHITE BLOOD COUNT (AUTO) 5.9 K/uL (4.5-11.0)
[2025-01-11 11:45] LABS: CALCIUM, TOTAL 8.9 mg/dL (8.8-10.5); CREATININE 0.67 mg/dL (0.60-1.30); GLOMERULAR FILTR. RATE CALC > 60 mL/min (>60); GLUCOSE,RANDOM 108 mg/dL (70-110); SODIUM SERUM 139 mmol/L (136-145); UREA NITROGEN, BLOOD 9 mg/dL (7-18)
[2025-01-11 12:15] LABS: COVID AG,FIA SOURCE NASAL SWAB
[2025-01-11 13:16] LABS: SARS-COV2 (COVID) ANTIGEN,FIA Negative (Negative)
[2025-01-11] MEDS: NICOTINE POLACRILEX 2 MG GUM CHEW ONE (17:05)
[2025-01-11 20:41] VITALS: O2SAT 96
[2025-01-11 22:13] VITALS: BP 116/78; PULSE 90; RESP 16; TEMP 98.6; O2SAT 100
[2025-01-11] MEDS: ZOLPIDEM TARTRATE 10 MG TABLET PO PRN (23:45)
[2025-01-12] MEDS ORDERED: INFLUENZA VIRUS VACCINE TVS (6MO+) 2025-26/PF 45 MCG/0.5 ML SYRINGE IM. ONE (02:45)
[2025-01-12 08:24] VITALS: BP 110/78; PULSE 101; RESP 17; TEMP 98; O2SAT 95
[2025-01-12] MEDS ORDERED: MAG HYDROX/ALUMINUM HYD/SIMETH ES 30 ML SUSPENSION UDCUP PO PRN (09:00)
[2025-01-12] MEDS ORDERED: ALBUTEROL SULFATE HFA 90 MCG/PUFF 8 GM INHALER IH PRN (09:00)
[2025-01-12] MEDS ORDERED: IBUPROFEN 600 MG TABLET PO PRN (09:00)
[2025-01-12] MEDS ORDERED: ACETAMINOPHEN 325 MG TABLET PO PRN (09:00)
[2025-01-12] MEDS ORDERED: MAGNESIUM HYDROXIDE SUSPENSION 30 ML UDCUP PO PRN (09:00)
[2025-01-12] MEDS ORDERED: BACITRACIN 28 GM OINTMENT TP PRN (09:00)
[2025-01-12] MEDS ORDERED: OMEPRAZOLE 20 MG CAPSULE PO PRN (09:00)
[2025-01-12] MEDS ORDERED: ONDANSETRON 4 MG TABLET PO PRN (09:00)
[2025-01-12] MEDS ORDERED: DOCUSATE SODIUM 100 MG CAPSULE PO PRN (09:00)
[2025-01-12] MEDS ORDERED: LOPERAMIDE HCL 2 MG CAPSULE PO PRN (09:00)
[2025-01-12] MEDS ORDERED: PETROLATUM,WHITE 28 GM JELLY TP PRN (09:00)
[2025-01-12] MEDS: NICOTINE 21 MG/24 HOUR PATCH TD SCH (09:43)
[2025-01-12 10:09] LABS: CHOL/HDL RATIO 4.7 (4.2-7.3); LDL CHOL (CALC.) 125.0 mg/dL (0-130)
[2025-01-12] MEDS: BENZOCAINE/MENTHOL [CEPACOL] LOZENGE PO PRN (13:34)
[2025-01-12 20:25] VITALS: BP 114/74; PULSE 81; RESP 17; TEMP 97.8; O2SAT 97
[2025-01-13 08:41] VITALS: BP 104/62; PULSE 103; RESP 18; TEMP 98.5; O2SAT 99
[2025-01-13] MEDS ORDERED: NICOTINE POLACRILEX 4 MG LOZENGE PO PRN (10:00)
[2025-01-13 20:25] VITALS: BP 112/85; PULSE 73; RESP 17; TEMP 97.9; O2SAT 97
[2025-01-14 08:18] VITALS: BP 100/72; PULSE 95; RESP 17; TEMP 97.1; O2SAT 95
[2025-01-14 20:13] VITALS: BP 115/80; PULSE 81; RESP 18; TEMP 98.8; O2SAT 97
[2025-01-15 09:19] VITALS: BP 115/73; PULSE 75; RESP 17; TEMP 97.5; O2SAT 97
[2025-01-15 20:08] VITALS: BP 119/70; PULSE 79; RESP 18; TEMP 97.6; O2SAT 98
[2025-01-16 08:12] VITALS: BP 101/67; PULSE 78; RESP 17; TEMP 97.9; O2SAT 97
== END 2025-01-16 17:15 | disposition home or self-care (01) | DRG 750 ==
LOC: EMS 11:38 → B2S 19:04
PROVIDERS: ADMIT Psychiatry & Neurology Psychiatry; ATTEND Psychiatry & Neurology Psychiatry
DX: F20.9 Schizophrenia, unspecified (principal); R45.851 Suicidal ideations; F12.10 Cannabis abuse, uncomplicated; F41.9 Anxiety disorder, unspecified; G47.00 Insomnia, unspecified; K59.00 Constipation, unspecified; F90.9 Attention-deficit hyperactivity disorder, unspecified type; Z20.822 Contact with and (suspected) exposure to COVID-19; F17.210 Nicotine dependence, cigarettes, uncomplicated; Z79.899 Other long term (current) drug therapy
CPT/HCPCS: 80048; 80061; 83036; 84436; 84443; 85025; 86592; 87081; 90686; 99285; G0480